=== PATIENT | female | born 1940 | race Caucasian/White ===

== ENCOUNTER 2017-06-26 18:53 | Inpatient (IN) | payer MEDICARE, OTHER ==
[~2017-06-26] VITALS: Ht 152.4 cm; Wt 63.6 kg
[2017-06-26 19:57] LABS: BASOPHILS 0.5 % (0-2); EOSINOPHILS 4.7 % (0-7); HEMATOCRIT 43.1 % (36.0-48.0); HEMOGLOBIN 14.6 g/dL (12-16); IMMATURE GRANULOCYTES 0.1 % (0-5); LYMPHOCYTES 10.9 % (15-50); MCH 29.8 pg (26.0-34.0); MCHC 33.9 g/dL (31.0-37.0); MEAN PLATELET VOLUME 10.4 fL (7.4-10.4); MONOCYTES 8.3 % (2-11); NEUTROPHILS 75.5 % (40-80); PLATELET COUNT 206 10x3/uL (130-400); RDW 13.2 % (11.5-14.5); WBC 8.2 10x3/uL (4.8-10.8)
[2017-06-26 20:11] LABS: ALBUMIN 3.6 g/dL (3.4-5.0); ALKALINE PHOSPHATASE 82 U/L (46-116); ALT (SGPT) 20 U/L (10-68); BILIRUBIN - TOTAL 0.82 mg/dL (0.2-1.3); CALC OSMOLALITY 291 mosm/kg (275-300); CALCIUM 9.5 mg/dL (8.5-10.1); CARBON DIOXIDE 34.5 mmol/L (21.0-32.0); CHLORIDE - SERUM 103 mmol/L (98-107); CREATININE - SERUM 1.1 mg/dL (0.6-1.3); GLUCOSE 128 mg/dL (74-106); POTASSIUM - SERUM 3.5 mmol/L (3.5-5.1); SODIUM 146 mmol/L (136-145); UREA NITROGEN 9 mg/dL (7-18); eGFR NON AFRICAN AMERICAN 51 mL/min (90-120)
[2017-06-26 20:24] LABS: CREATINE KINASE 55 UL (21-215)
[2017-06-26 20:41] LABS: TROPONIN-I < 0.017 ng/mL (0.000-0.060)
[2017-06-26 23:39] LABS: CKMB 1.1 U/L (0.0-3.6); CREATINE KINASE 53 UL (21-215); TROPONIN-I < 0.017 ng/mL (0.000-0.060)
[2017-06-27] VITALS: BP 140/80
[2017-06-27] MEDS ORDERED: SPIRIVA18 MCG INH (00:59)
[2017-06-27] MEDS ORDERED: PATANOL 0.1 % OP5 ML EACH EYE (01:00)
[2017-06-27] MEDS ORDERED: MUCOMYST 20200 MG/M2 INH (01:00)
[2017-06-27] MEDS ORDERED: NORVASC5 MG PO (01:01)
[2017-06-27] MEDS ORDERED: PULMICORT0.5 MG/21 INH (01:02)
[2017-06-27] MEDS ORDERED: CHOLESTYRAMIN4 G/PK1 PO (01:03)
[2017-06-27] MEDS ORDERED: COREG12.5 MG PO (01:03)
[2017-06-27 05:31] LABS: BASOPHILS 0.7 % (0-2); EOSINOPHILS 7.4 % (0-7); HEMATOCRIT 40.5 % (36.0-48.0); HEMOGLOBIN 13.7 g/dL (12-16); IMMATURE GRANULOCYTES 0.2 % (0-5); LYMPHOCYTES 19.1 % (15-50); MCH 29.5 pg (26.0-34.0); MCHC 33.8 g/dL (31.0-37.0); MCV 87.1 fL (80.0-100.0); MEAN PLATELET VOLUME 10.7 fL (7.4-10.4); MONOCYTES 10.2 % (2-11); NEUTROPHILS 62.4 % (40-80); PLATELET COUNT 209 10x3/uL (130-400); RBC 4.65 10x6/uL (4.00-5.40); RDW 13.4 % (11.5-14.5)
[2017-06-27 05:38] LABS: ANION GAP 10.6 mmol/L (8-16); CALCIUM 9.2 mg/dL (8.5-10.1); CARBON DIOXIDE 32.2 mmol/L (21.0-32.0)
[2017-06-27 05:40] LABS: CREATININE - SERUM 0.8 mg/dL (0.6-1.3)
[2017-06-27 05:41] LABS: POTASSIUM - SERUM 2.8 mmol/L (3.5-5.1)
[2017-06-27 06:09] LABS: CKMB 0.8 U/L (0.0-3.6); CREATINE KINASE 46 UL (21-215); TROPONIN-I < 0.017 ng/mL (0.000-0.060)
[2017-06-27 09:56] VITALS: BP 157/84
[2017-06-27 12:15] LABS: CKMB 0.7 U/L (0.0-3.6); CREATINE KINASE 48 UL (21-215); TROPONIN-I < 0.017 ng/mL (0.000-0.060)
[2017-06-27 12:23] VITALS: BP 151/87
[2017-06-27 16:15] LABS: CKMB 0.7 U/L (0.0-3.6); CREATINE KINASE 54 UL (21-215); TROPONIN-I < 0.017 ng/mL (0.000-0.060)
[2017-06-27 16:59] VITALS: BP 130/63
[2017-06-27 20:33] VITALS: BP 142/89
[2017-06-28 00:41] VITALS: BP 179/76
[2017-06-28 05:50] VITALS: BP 192/95
[2017-06-28 08:13] VITALS: BP 127/70
[2017-06-28 11:25] VITALS: BP 147/89
[2017-06-28 12:36] LABS: BASOPHILS 0.3 % (0-2); EOSINOPHILS 6.2 % (0-7); HEMATOCRIT 41.3 % (36.0-48.0); IMMATURE GRANULOCYTES 0.1 % (0-5); LYMPHOCYTES 21.2 % (15-50); MCHC 33.9 g/dL (31.0-37.0); MCV 88.4 fL (80.0-100.0); MEAN PLATELET VOLUME 10.2 fL (7.4-10.4); MONOCYTES 6.1 % (2-11); NEUTROPHILS 66.1 % (40-80); PLATELET COUNT 190 10x3/uL (130-400); RBC 4.67 10x6/uL (4.00-5.40); RDW 13.5 % (11.5-14.5); WBC 7.1 10x3/uL (4.8-10.8)
[2017-06-28 12:51] LABS: ALBUMIN 3.2 g/dL (3.4-5.0); ANION GAP 12.3 mmol/L (8-16); BILIRUBIN - TOTAL 1.02 mg/dL (0.2-1.3); CALCIUM 9.4 mg/dL (8.5-10.1); CARBON DIOXIDE 32.4 mmol/L (21.0-32.0); CREATININE - SERUM 0.9 mg/dL (0.6-1.3); POTASSIUM - SERUM 3.7 mmol/L (3.5-5.1); PROTEIN - SERUM 7.6 g/dL (6.4-8.2)
[2017-06-28 15:44] VITALS: BP 128/55
[2017-06-28 20:30] VITALS: BP 153/72
[2017-06-29 00:30] VITALS: BP 126/60
[2017-06-29 04:30] VITALS: BP 149/73
[2017-06-29 05:02] LABS: BASOPHILS 0.4 % (0-2); EOSINOPHILS 7.8 % (0-7); HEMATOCRIT 39.1 % (36.0-48.0); HEMOGLOBIN 12.9 g/dL (12-16); IMMATURE GRANULOCYTES 0.3 % (0-5); LYMPHOCYTES 21.3 % (15-50); MCH 29.5 pg (26.0-34.0); MCV 89.3 fL (80.0-100.0); MEAN PLATELET VOLUME 10.4 fL (7.4-10.4); MONOCYTES 9.2 % (2-11); PLATELET COUNT 193 10x3/uL (130-400); RBC 4.38 10x6/uL (4.00-5.40); RDW 13.6 % (11.5-14.5); WBC 7.3 10x3/uL (4.8-10.8)
[2017-06-29 05:26] LABS: ANION GAP 12.5 mmol/L (8-16); BILIRUBIN - TOTAL 0.93 mg/dL (0.2-1.3); CALCIUM 9.3 mg/dL (8.5-10.1); CARBON DIOXIDE 31.2 mmol/L (21.0-32.0); CREATININE - SERUM 0.8 mg/dL (0.6-1.3); PHOSPHOROUS 4.4 mg/dL (2.5-4.9); POTASSIUM - SERUM 3.7 mmol/L (3.5-5.1); PROTEIN - SERUM 6.9 g/dL (6.4-8.2)
[2017-06-29 08:29] VITALS: BP 162/73
[2017-06-29 11:31] VITALS: BP 176/90
[2017-06-29 15:47] VITALS: BP 183/82
[2017-06-29 20:30] VITALS: BP 117/54
[2017-06-30 00:30] VITALS: BP 151/74
[2017-06-30 04:30] VITALS: BP 115/70
[2017-06-30 05:06] LABS: BASOPHILS 0.2 % (0-2); EOSINOPHILS 0.4 % (0-7); HEMATOCRIT 39.5 % (36.0-48.0); HEMOGLOBIN 13.3 g/dL (12-16); IMMATURE GRANULOCYTES 0.2 % (0-5); LYMPHOCYTES 9.5 % (15-50); MCH 29.7 pg (26.0-34.0); MCHC 33.7 g/dL (31.0-37.0); MCV 88.2 fL (80.0-100.0); MEAN PLATELET VOLUME 10.4 fL (7.4-10.4); MONOCYTES 1.4 % (2-11); NEUTROPHILS 88.3 % (40-80); PLATELET COUNT 178 10x3/uL (130-400); RBC 4.48 10x6/uL (4.00-5.40); RDW 13.4 % (11.5-14.5)
[2017-06-30 05:09] LABS: WBC 5.1 10x3/uL (4.8-10.8)
[2017-06-30 05:38] LABS: ALBUMIN 3.2 g/dL (3.4-5.0); ANION GAP 12.2 mmol/L (8-16); BILIRUBIN - TOTAL 0.73 mg/dL (0.2-1.3); CALCIUM 9.2 mg/dL (8.5-10.1); CARBON DIOXIDE 31.1 mmol/L (21.0-32.0); CREATININE - SERUM 0.8 mg/dL (0.6-1.3); POTASSIUM - SERUM 4.3 mmol/L (3.5-5.1); PROTEIN - SERUM 7.5 g/dL (6.4-8.2)
[2017-06-30 08:21] VITALS: BP 155/85
[2017-06-30 12:15] VITALS: BP 155/75
[2017-06-30 12:45] VITALS: Ht 152.4 cm; Wt 63.6 kg
[2017-06-30 17:24] VITALS: BP 149/90
[2017-06-30 20:00] VITALS: BP 178/99
[2017-07-01 00:49] VITALS: BP 156/99
[2017-07-01 06:00] LABS: BASOPHILS 0 % (0-2); EOSINOPHILS 0 % (0-7); HEMATOCRIT 39.9 % (36.0-48.0); HEMOGLOBIN 13.5 g/dL (12-16); IMMATURE GRANULOCYTES 0.2 % (0-5); LYMPHOCYTES 7.3 % (15-50); MCH 29.7 pg (26.0-34.0); MCHC 33.8 g/dL (31.0-37.0); MCV 87.9 fL (80.0-100.0); MEAN PLATELET VOLUME 11.2 fL (7.4-10.4); NEUTROPHILS 87.5 % (40-80); PLATELET COUNT 203 10x3/uL (130-400); RBC 4.54 10x6/uL (4.00-5.40); RDW 13.5 % (11.5-14.5)
[2017-07-01 06:17] LABS: ALBUMIN 3.1 g/dL (3.4-5.0); BILIRUBIN - TOTAL 0.61 mg/dL (0.2-1.3); CALCIUM 9.6 mg/dL (8.5-10.1); CARBON DIOXIDE 29.4 mmol/L (21.0-32.0); CREATININE - SERUM 0.8 mg/dL (0.6-1.3); POTASSIUM - SERUM 4.4 mmol/L (3.5-5.1); PROTEIN - SERUM 7.4 g/dL (6.4-8.2)
[2017-07-01 06:25] LABS: WBC 12.6 10x3/uL (4.8-10.8)
[2017-07-01 06:46] VITALS: BP 140/81
[2017-07-01 08:51] VITALS: BP 140/81
[2017-07-01 11:20] LABS: IMMUNOGLOBULIN A 1614 mg/dL (64-422); IMMUNOGLOBULIN M 68 mg/dL (26-217)
[2017-07-01 12:29] VITALS: BP 125/80
[2017-07-01 17:28] VITALS: BP 143/72
[2017-07-01 20:00] VITALS: BP 145/76
[2017-07-02] VITALS: BP 142/59
[2017-07-02 04:00] VITALS: BP 146/68
[2017-07-02 06:07] LABS: BASOPHILS 0 % (0-2); EOSINOPHILS 0 % (0-7); HEMATOCRIT 40.5 % (36.0-48.0); HEMOGLOBIN 13.5 g/dL (12-16); IMMATURE GRANULOCYTES 0.4 % (0-5); LYMPHOCYTES 6.5 % (15-50); MCH 29.8 pg (26.0-34.0); MCHC 33.3 g/dL (31.0-37.0); MCV 89.4 fL (80.0-100.0); MEAN PLATELET VOLUME 11.9 fL (7.4-10.4); MONOCYTES 1.6 % (2-11); NEUTROPHILS 91.5 % (40-80); PLATELET COUNT 197 10x3/uL (130-400); RBC 4.53 10x6/uL (4.00-5.40); RDW 13.7 % (11.5-14.5); WBC 11.3 10x3/uL (4.8-10.8)
[2017-07-02 06:10] LABS: ALBUMIN 3.1 g/dL (3.4-5.0); ANION GAP 11.6 mmol/L (8-16); BILIRUBIN - TOTAL 0.4 mg/dL (0.2-1.3); CALCIUM 9.3 mg/dL (8.5-10.1); CARBON DIOXIDE 29.4 mmol/L (21.0-32.0); CREATININE - SERUM 0.9 mg/dL (0.6-1.3); PROTEIN - SERUM 7.4 g/dL (6.4-8.2)
[2017-07-02 08:00] VITALS: BP 127/88
[2017-07-02] MEDS ORDERED: PREDNISONE20 MG PO (11:44)
[2017-07-02] MEDS ORDERED: PROTONIX40 MG PO (11:45)
[2017-07-02] MEDS ORDERED: LEVAQUIN500 MG PO (11:45)
[2017-07-05 12:12] LABS: IMMUNOGLOBULIN E 260 IU/mL (0-100)
== END 2017-07-02 15:04 | disposition home or self-care (01) | DRG 193 ==
LOC: D.ER 18:53 → D.M2 23:04 → OBSVTIME 23:04 → D.M2 23:04
PROVIDERS: Emergency Medicine; Family Medicine; Internal Medicine Pulmonary Disease
DX: J18.9 Pneumonia, unspecified organism (principal); J96.01 Acute respiratory failure with hypoxia; J98.11 Atelectasis; E87.0 Hyperosmolality and hypernatremia; J20.9 Acute bronchitis, unspecified; I10 Essential (primary) hypertension; K21.9 Gastro-esophageal reflux disease without esophagitis; I08.3 Combined rheumatic disorders of mitral, aortic and tricuspid valves; J39.8 Other specified diseases of upper respiratory tract; K59.00 Constipation, unspecified; J30.9 Allergic rhinitis, unspecified; K57.90 Diverticulosis of intestine, part unspecified, without perforation or abscess without bleeding; E87.6 Hypokalemia; M81.0 Age-related osteoporosis without current pathological fracture; J45.909 Unspecified asthma, uncomplicated; Z87.891 Personal history of nicotine dependence

== ENCOUNTER 2017-08-09 11:43 | Emergency (ER) | payer MEDICARE, OTHER ==
[2017-06-30 12:45] VITALS: BMI 27.7
[~2017-08-09 11:43] MED LIST: CHOLESTYRAMIN4 G/PK1 PO; COREG12.5 MG PO; LEVAQUIN500 MG PO; MUCOMYST 20200 MG/M2 INH; NORVASC5 MG PO; PATANOL 0.1 % OP5 ML EACH EYE; PREDNISONE20 MG PO; PROTONIX40 MG PO; PULMICORT0.5 MG/21 INH; SPIRIVA18 MCG INH
[2017-08-09 12:45] LABS: BASOPHILS 0.5 % (0-2); HEMATOCRIT 40.1 % (36.0-48.0); IMMATURE GRANULOCYTES 0.2 % (0-5); LYMPHOCYTES 21.7 % (15-50); MCH 29.9 pg (26.0-34.0); MCHC 34.9 g/dL (31.0-37.0); MCV 85.7 fL (80.0-100.0); MONOCYTES 8.4 % (2-11); NEUTROPHILS 63.2 % (40-80); PLATELET COUNT 210 10x3/uL (130-400); RBC 4.68 10x6/uL (4.00-5.40); RDW 13.2 % (11.5-14.5); WBC 6.6 10x3/uL (4.8-10.8)
== END 2017-08-09 14:36 | disposition home or self-care (01) ==
LOC: D.ER 11:43
PROVIDERS: Nurse Practitioner Family
DX: J44.1 Chronic obstructive pulmonary disease with (acute) exacerbation (principal)

== ENCOUNTER 2018-12-21 00:58 | Inpatient (IN) | payer MEDICARE, OTHER ==
[~2018-12-21] VITALS: Ht 152.4 cm; Wt 75.1 kg
[2018-12-21] VITALS (75 sets, daily range): BP systolic 57–195; BP diastolic 24–120; Ht 152.4 cm; Wt 75.1 kg
--- NOTE | 2018-12-21 01:22 | NUR ---
ET TUBE CHANGED OUT BY DR HODGES USING DIRECT VISUALIZATION. 7.0 ET TUBE PLACED.
[2018-12-21 01:25] LABS: BASOPHILS 0.4 % (0-2); EOSINOPHILS 3.3 % (0-7); HEMATOCRIT 34.2 % (36.0-48.0); HEMOGLOBIN 11.1 g/dL (12-16); IMMATURE GRANULOCYTES 0.4 % (0-5); LYMPHOCYTES 13.7 % (15-50); MCH 29.2 pg (26.0-34.0); MCHC 32.5 g/dL (31.0-37.0); MEAN PLATELET VOLUME 10.5 fL (7.4-10.4); MONOCYTES 5.6 % (2-11); NEUTROPHILS 76.6 % (40-80); PLATELET COUNT 176 10x3/uL (130-400); RDW 14.1 % (11.5-14.5); WBC 5.7 10x3/uL (4.8-10.8)
[2018-12-21 01:37] LABS: APPEARANCE CLOUDY (CLEAR); BILIRUBIN NEGATIVE (NEGATIVE); COLOR DK YELLOW (YELLOW); GLUCOSE NEGATIVE (NEGATIVE); KETONE NEGATIVE (NEGATIVE); NITRITE POSITIVE (NEGATIVE); PROTEIN 3+ mg/dL (NEGATIVE); UROBILINOGEN NORMAL (NORMAL)
[2018-12-21 01:39] LABS: BACTERIA MANY /hpf (NEGATIVE); EPITHELIAL CELLS 0-5 /hpf (0-5); RED CELLS - URINE 0-5 /hpf (0-5); WHITE CELLS - URINE 0-5 /hpf (NEGATIVE)
[2018-12-21 02:02] LABS: ALBUMIN 2.4 g/dL (3.4-5.0); ALKALINE PHOSPHATASE 72 U/L (46-116); ALT (SGPT) 19 U/L (10-68); BILIRUBIN - TOTAL 0.64 mg/dL (0.2-1.3); CALC OSMOLALITY 287 mosm/kg (275-300); CALCIUM 8.4 mg/dL (8.5-10.1); CARBON DIOXIDE 27.4 mmol/L (21.0-32.0); CHLORIDE - SERUM 108 mmol/L (98-107); CREATININE - SERUM 0.8 mg/dL (0.6-1.3); GLUCOSE 160 mg/dL (74-106); POTASSIUM - SERUM 3.3 mmol/L (3.5-5.1); PROTEIN - SERUM 5.8 g/dL (6.4-8.2); SODIUM 144 mmol/L (136-145); UREA NITROGEN 6 mg/dL (7-18); eGFR NON AFRICAN AMERICAN 73 mL/min (90-120)
[2018-12-21 02:10] LABS: CREATINE KINASE 39 UL (21-215); MAGNESIUM - SERUM 1.7 mg/dL (1.8-2.4); PRO BNP 109 pg/mL (0-450); TROPONIN-I < 0.017 ng/mL (0.000-0.060)
--- NOTE | 2018-12-21 03:25 | NUR ---
RECEIVED PT FROM THE ED TO ROOM 2303. PT IS INTUBATED AND SEDATED AT TIME OF TRANSFER. BILATERAL WRIST RESTRAINTS IN PLACE. PT ATTACHED TO ICU MONITORS, ALL MONITORS ARE WORKING CORRECTLY AT THIS TIME. INITIAL ASSESSMENT COMPLETED, SEE FLOWSHEET FOR DETAILS. PT CURRENTLY HAS MAKI HUGGER ON DUE TO DECREASED TEMPERTURE. PT CLEANED UP AND OLD BED LINENS REMOVED. NO FURTHER NEEDS NOTED AT THIS TIME. NO SIGNS OF ACUTE DISTRESS. WILL CONTINUE TO MONITOR.
--- NOTE | 2018-12-21 05:00 | NUR ---
PT IS LAYING IN BED INTUBATED AND SEDATED. PT REPOSITIONED FOR COMFORT. ORAL CARE PERFORMED. NO FURTHER NEEDS NOTED AT THIS TIME. NO SIGNS OF ACUTE DISTRESS. WILL CONTINUE TO MONITOR.
--- NOTE | 2018-12-21 07:00 | NUR ---
REC'D PT INTUBATED, SEDATED, AND RESTRAINED. PT WITH V/S/S. LEVOPHED AT 10MCG, PROPOFOL AT 50MCG/KG/MIN, AND NS AT 100CC/HR. SEE FLOWSHEET FOR DETAILED NSG ASSESS.
--- NOTE | 2018-12-21 09:00 | NUR ---
0900 PT RESTING WELL. V/S/S. TOLERATED AM MEDS. K+ and Mag replaced per electrolyte protocol. No changes in previous assess. Will continue to monitor.
--- NOTE | 2018-12-21 10:00 | NUR ---
1000 Dr. Gaines here. Orders rec'd. Titrating drips as needed. see flowsheet. 1100 No changes in previous assess. See ns flowsheet for details.
--- NOTE | 2018-12-21 11:00 | NUR ---
patient on vent. sedated. levophed. patient turned. oral care done. new sheets provided. face washed. will continue to monitor.
--- NOTE | 2018-12-21 13:00 | NUR ---
patient awakens on command. reoriented patient to place and situation. no distress noted. educated on why restraints were put on. turned patient. suctioned patient. clear secretions. denies pain.
--- NOTE | 2018-12-21 19:00 | NUR ---
PT REPORT RECEIVED FROM DAY SHIFT NURSE. VSS. NO SIGNS OF DISTRESS NOTED. WILL CONTINUE TO MONITOR
--- NOTE | 2018-12-21 21:00 | NUR ---
PT RESTING IN BED. VSS. NO SIGNS OF DISTRESS NOTED. WILL CONTINUE TO MONITOR
--- NOTE | 2018-12-21 23:09 | NUR ---
PT REASSESSMENT COMPLETED. RESTING IN BED. VSS. WILL CONTINUE TO MONITOR
[2018-12-22] VITALS (31 sets, daily range): BP systolic 102–155; BP diastolic 49–98
--- NOTE | 2018-12-22 01:00 | NUR ---
PT RESTING IN BED. NO SIGNS OF DISTRESS NOTED. VSS. WILL CONTINUE TO MONITOR
--- NOTE | 2018-12-22 03:00 | NUR ---
PT RESTING IN BED. REASSESSMENT COMPLETED. PT TOLERATED WELL. VSS. WILL CONTINUE TO MONITOR
--- NOTE | 2018-12-22 05:00 | NUR ---
PT RESTING IN BED. ORAL CARE PERFORMED. NO COMPLAINTS NOTED AT THIS TIME. VSS. WILL CONTINUE TO MONITOR
[2018-12-22 05:19] LABS: BASOPHILS 0.1 % (0-2); EOSINOPHILS 0 % (0-7); HEMATOCRIT 37.2 % (36.0-48.0); HEMOGLOBIN 12.2 g/dL (12-16); IMMATURE GRANULOCYTES 0.2 % (0-5); LYMPHOCYTES 5.7 % (15-50); MCH 29.4 pg (26.0-34.0); MCHC 32.8 g/dL (31.0-37.0); MCV 89.6 fL (80.0-100.0); MEAN PLATELET VOLUME 11.9 fL (7.4-10.4); MONOCYTES 1.8 % (2-11); NEUTROPHILS 92.2 % (40-80); PLATELET COUNT 173 10x3/uL (130-400); RBC 4.15 10x6/uL (4.00-5.40); RDW 14.8 % (11.5-14.5)
[2018-12-22 05:39] LABS: ANION GAP 11.8 mmol/L (8-16); CALCIUM 8.2 mg/dL (8.5-10.1); CARBON DIOXIDE 26.4 mmol/L (21.0-32.0); CREATININE - SERUM 0.8 mg/dL (0.6-1.3); MAGNESIUM - SERUM 1.8 mg/dL (1.8-2.4); PHOSPHOROUS 2.2 mg/dL (2.5-4.9); POTASSIUM - SERUM 3.2 mmol/L (3.5-5.1)
--- NOTE | 2018-12-22 07:00 | NUR ---
REC'D REPORT FROM [facility]. PT REMAINS INTUBATED, SEDATED, AND RESTRAINED. PROP. AT 30MCG INFUSING. PT AWAKENS TO VOICE. SEE FLOWSHEET FOR DETAILS. V/S/S. WILL CONTINUE TO MONITOR.
--- NOTE | 2018-12-22 09:00 | NUR ---
0900 PT WITHOUT CHANGES. V/S/S. WILL CONT TO MONITOR.
--- NOTE | 2018-12-22 11:00 | NUR ---
1030 PT RESTRAINTS D/C'D. PROPOFOL OFF. TOLERATING WEANING ON VENT WELL. PT FOLLOWING COMMANDS. 1100 PT EXTUBATED AND DOING WELL. CURRENTLY ON BIPAP AND V/S/S. CL IN REACH. WILL CONTINUE TO MONITOR.
--- NOTE | 2018-12-22 11:55 | MORECARE ---
CASE MANAGEMENT DISCHARGE SUMMARY PATIENT: ADRIEN BERGERON UNIT: [id number] ADM DATE: 12/21/18 AGE: 78 : 38 SEX: F ROOM/BED: D.2303 AUTHOR: GRISEL WINN PHYSICIAN: REFERRING PHYSICIAN: BOB MOMIN MD DATE OF SERVICE: 12/22/18 Discharge Plan Patient Name: ADRIEN BERGERON Facility: [facility]:[place] : 1940 Planned Disposition: Home Anticipated Discharge Date: Discharge Date: Expected LOS: Initial Reviewer: [email or web address] Initial Review Date: 12/21/2018 Generated: 12/22/18 12:54 pm Patient Name: ADRIEN BERGERON Page [phone] at 1155 All edits/amendments must be made on the electronic document DICTATION DATE: 12/22/18 1154 DISABILITY CASE MANAGER: SOPHIE 12/22/18 1154 RPT#: [id number] DC DATE: STATUS: ADM IN [facility] [address] [place] [address] END OF REPORT
--- NOTE | 2018-12-22 12:11 | MORECARE ---
CASE MANAGEMENT DISCHARGE SUMMARY PATIENT: ARDIEN BERGERON UNIT: [id number] ADM DATE: 12/21/18 AGE: 78 : 38 SEX: F ROOM/BED: D.2303 AUTHOR: GRISEL WINN PHYSICIAN: REFERRING PHYSICIAN: BOB MOMIN MD DATE OF SERVICE: 12/22/18 Discharge Plan Patient Name: ADRIEN BERGERON Facility: [facility]:[place] : 1940 Planned Disposition: Home Anticipated Discharge Date: Discharge Date: Expected LOS: Initial Reviewer: [email or web address] Initial Review Date: 12/21/2018 Generated: 12/22/18 1:11 pm Comments DCP- Discharge Planning Updated by [email or web address]: Terri Turk on 12/22/18 11:[address] Patient Name: ADRIEN BERGERON Admission Status: ER Accout number: [id number] Admission Date: 12-21-2018 : 1940 Admission Diagnosis:ACUTE RESPIRATORY FAILURE, UNSP W HYPOXIA OR HYPERCAPNI Attending: BOB MOMIN Current LOS: 1 Anticipated DC Date: Planned Disposition: Home Primary Insurance: MEDICARE A & B Discharge Planning Comments: CM spoke with patient's brother Kumar Bower [phone]. Kumar stated that patient lives alone and he is her only family. He stated that the patient has two daughters that she hasn't had contact with in over 30 yrs. Kumar states that the patient sees multiple doctors but uncertain as to who they all are. He states that he takes her to her appointments about twice a month. Kumar stated that she does have home 02 at his house and hers but that is all that he knows at this point. CM will need to re-evaluate this discharge plan once patient is off vent and alert. CM will continue to follow and assist as needed with discharge planning / needs School Bus Technician: Terri Turk Last DP export: 12/22/18 10:55 a Patient Name: ADRIEN BERGERON Page [phone] at 1211 All edits/amendments must be made on the electronic document DICTATION DATE: 12/22/18 1211 ROTOFORMER BACKTENDER: DM 12/22/18 1211 RPT#: [id number] DC DATE: STATUS: ADM IN [facility] [address] [place] [address] END OF REPORT
--- NOTE | 2018-12-22 13:00 | NUR ---
1300 pt tolerating NC well at 2L. v/s/s CL in reach will continue to monitor.
--- NOTE | 2018-12-22 18:27 | NUR ---
1500 bedside swallowing study done. pt tolerated sips very well. pt already had loud congested cough. no changes in o2sat, lung sounds, or respiratory status.
--- NOTE | 2018-12-22 19:00 | NUR ---
PT REPORT RECEIVED FROM DAY SHIFT NURSE. PT RESTING IN BED. VSS. NO SIGNS OF DISTRESS NOTED. WILL CONTINUE TO MONITOR
--- NOTE | 2018-12-22 21:00 | NUR ---
PT RESTING IN BED. FAMILY AT BEDSIDE. NO SIGNS OF DISTRESS NOTED. WILL CONTINUE TO MONITOR
--- NOTE | 2018-12-22 23:00 | NUR ---
PT RESTING IN BED. REASSESSMENT COMPLETED. PT TOLERATED WELL. WILL CONTINUE TO MONITOR
[2018-12-23] VITALS (14 sets, daily range): BP systolic 110–170; BP diastolic 48–102
--- NOTE | 2018-12-23 01:00 | NUR ---
PT RESTING IN BED. VSS. NO COMPLAINTS AT THIS TIME. WILL CONTINUE TO MONITOR
--- NOTE | 2018-12-23 03:00 | NUR ---
PT REASSESSMENT COMPLETED. NO COMPLAINTS NOTED AT THIS TIME. VSS. WILL CONTINUE TO MONITOR
[2018-12-23 04:07] LABS: BASOPHILS 0.1 % (0-2); EOSINOPHILS 0 % (0-7); HEMATOCRIT 35.2 % (36.0-48.0); HEMOGLOBIN 11.8 g/dL (12-16); IMMATURE GRANULOCYTES 0.3 % (0-5); LYMPHOCYTES 6.2 % (15-50); MCH 29.5 pg (26.0-34.0); MCHC 33.5 g/dL (31.0-37.0); MEAN PLATELET VOLUME 11.7 fL (7.4-10.4); MONOCYTES 3.3 % (2-11); NEUTROPHILS 90.1 % (40-80); PLATELET COUNT 165 10x3/uL (130-400); RDW 14.9 % (11.5-14.5); WBC 12.2 10x3/uL (4.8-10.8)
[2018-12-23 04:17] LABS: CALC OSMOLALITY 290 mosm/kg (275-300); CALCIUM 8.2 mg/dL (8.5-10.1); CARBON DIOXIDE 27.2 mmol/L (21.0-32.0); CHLORIDE - SERUM 109 mmol/L (98-107); CREATININE - SERUM 0.7 mg/dL (0.6-1.3); GLUCOSE 157 mg/dL (74-106); POTASSIUM - SERUM 3.1 mmol/L (3.5-5.1); SODIUM 145 mmol/L (136-145); UREA NITROGEN 9 mg/dL (7-18); eGFR NON AFRICAN AMERICAN 85 mL/min (90-120)
--- NOTE | 2018-12-23 05:00 | NUR ---
PT GIVEN A CHG BATH AND LINEN CHANGE. TOLERATED WELL. NO COMPLAINTS NOTED AT THIS TIME. WILL CONTINUE TO MONITOR
--- NOTE | 2018-12-23 07:00 | NUR ---
BEDSIDE REPORT RECIEVED. ASSESSMENT COMPLETED PER FLOWSHEET, SEE FLOWSHEET FOR ADDITIONAL INFORMATION. VSS. NO NEEDS OT DISTRESS NOTED AT THIS TIME. WILL CONT TO MONITOR.
--- NOTE | 2018-12-23 09:00 | NUR ---
NUTRITION F/U CHART REVIEWED. PT REMAINS NPO, NURSING REPORTS PT SWALLOWING SIPS OF H2O WITHOUT DIFFICULTY. AWAITING MD FOR DIET ORDERS. RD FOLLOWING
--- NOTE | 2018-12-23 09:00 | NUR ---
DR. SHEPHERD AT BEDSIDE, ADVANCED DIET TO CLEAR LIQUIDS. NO NEEDS OR DISTRESS NOTED AT THIS TIME. VSS. WILL CONT TO MONITOR.
--- NOTE | 2018-12-23 11:00 | NUR ---
PT IN BED READING BOOK. NO NEEDS OR DISTRESS NOTED AT THIS TIME. VSS. WILL CONT TO MONITOR.
--- NOTE | 2018-12-23 14:19 | NUR ---
REPORT CALLED TO KAITLIN ON MED 2. PT GOING TO ROOM 2107. VSS. WILL CONT TO MONITOR.
--- NOTE | 2018-12-23 14:47 | NUR ---
PATIENT ARRIVED TO THE FLOOR WITHOUT ANY NEEDS OR COMPLAINTS AT THIS TIME. BED IS IN LOW POSITION AND CALL LIGHT IS IN REACH.
--- NOTE | 2018-12-23 16:53 | MORECARE ---
CASE MANAGEMENT DISCHARGE SUMMARY PATIENT: ADRIEN BERGERON UNIT: [id number] ADM DATE: 12/21/18 AGE: 78 : 38 SEX: F ROOM/BED: D.2106 AUTHOR: PA,DOC PHYSICIAN: REFERRING PHYSICIAN: BOB MOMIN MD DATE OF SERVICE: 12/23/18 Discharge Plan Patient Name: ADRIEN BERGERON Facility: [facility]:[place] : 1940 Planned Disposition: Home Anticipated Discharge Date: Discharge Date: Expected LOS: Initial Reviewer: [email or web address] Initial Review Date: 12/21/2018 Generated: 12/23/18 5:53 pm DCP- Discharge Planning Updated by [email or web address]: Terri Turk on 12/22/18 11:[address] Patient Name: ADRIEN BERGERON Admission Status: ER Accout number: [id number] Admission Date: 12-21-2018 : 1940 Admission Diagnosis:ACUTE RESPIRATORY FAILURE, UNSP W HYPOXIA OR HYPERCAPNI Attending: BOB MOMIN Current LOS: 1 Anticipated DC Date: Planned Disposition: Home Primary Insurance: MEDICARE A & B Discharge Planning Comments: CM spoke with patient's brother Jocelin Henderson [phone]. Jocelin stated that patient lives alone and he is her only family. He stated that the patient has two daughters that she hasn't had contact with in over 30 yrs. Jocelin states that the patient sees multiple doctors but uncertain as to who they all are. He states that he takes her to her appointments about twice a month. Jocelin stated that she does have home 02 at his house and hers but that is all that he knows at this point. CM will need to re-evaluate this discharge plan once patient is off vent and alert. CM will continue to follow and assist as needed with discharge planning / needs Spray Gun Striper: Terri Turk DCPIA - Discharge Planning Initial Assessment Updated by [email or web address]: Terri Turk on 12/23/18 4:51 pm * Is the patient Alert and Oriented? Yes * How many steps to enter\exit or inside your home? * PCP VERSER * Pharmacy [facility] * Preadmission Environment Home Alone * ADLs Independent * Other Equipment 02. PORT 02, NEBULIZER, WALKER, CANE * List name and contact numbers for known caregivers / representatives who currently or will assist patient after discharge: JOCELIN HENDERSON - [phone] * Verbal permission to speak to the caregivers and representatives has been obtained from the patient. Yes * Community resources currently utilized None * Additional services required to return to the preadmission environment? No * Can the patient safely return to the preadmission environment? Yes * Has this patient been hospitalized within the prior 30 days at any hospital? No Last DP export: 12/22/18 11:11 a Patient Name: ADRIEN BERGERON Page [id number] at 1653 All edits/amendments must be made on the electronic document DICTATION DATE: 12/23/181652 CIGAR PACKER AND PICKER: SOPHIE 12/23/181652 RPT#: [id number] DC DATE: STATUS: ADM IN [facility] [address] [place] [address] END OF REPORT
--- NOTE | 2018-12-23 17:05 | MORECARE ---
CASE MANAGEMENT DISCHARGE SUMMARY PATIENT: ADRIEN BERGERON UNIT: [id number] ADM DATE: 12/21/18 AGE: 78 : 38 SEX: F ROOM/BED: D.2106 AUTHOR: PA,DOC PHYSICIAN: REFERRING PHYSICIAN: BOB MOMIN MD DATE OF SERVICE: 12/23/18 Discharge Plan Patient Name: ADRIEN BERGERON Facility: [facility]:[place] : 1940 Planned Disposition: Inpatient Rehab Anticipated Discharge Date: Discharge Date: Expected LOS: Initial Reviewer: [email or web address] Initial Review Date: 12/21/2018 Generated: 12/23/18 6:05 pm Comments DCP- Discharge Planning Updated by [email or web address]: Terri Turk on 12/23/18 3:[address] Patient Name: ADRIEN BERGERON Admission Status: ER Accout number: [id number] Admission Date: 12-21-2018 : 1940 Admission Diagnosis:ACUTE RESPIRATORY FAILURE, UNSP W HYPOXIA OR HYPERCAPNI Attending: BOB MOMIN Current LOS: 2 Anticipated DC Date: Planned Disposition: Home Primary Insurance: MEDICARE A & B Discharge Planning Comments: CM met with patient to complete initial dc planning assessment. CM educated patient on the CM role and verbal consent given by patient to complete assessment. Patient lives at home alone where she is independent with her care. At discharge patient would like to possibly go to [facility] inpatient Rehab or [facility] for rehab and possibly local company intermodal truck driver care. Patient states she is very weak and feels this is a safe discharge plan. PAIGE signed CM discussed availability of home health, rehab services, and medical equipment. Patient's brother will transport her home upon discharge. Patient has a nebulizer and home o2 / portable 02 ( unknown provider ) Patient denied known discharge needs at this time. CM will continue to follow and will assist as needed with dc plans/needs. Automatic Spinning Lathe Setter: Terri Turk DCP- Discharge Planning Updated by [email or web address]: Terri Turk on 12/22/18 11:[address] Patient Name: ADRIEN BERGERON Admission Status: ER Accout number: [id number] Admission Date: 12-21-2018 : 1940 Admission Diagnosis:ACUTE RESPIRATORY FAILURE, UNSP W HYPOXIA OR HYPERCAPNI Attending: BOB MOMIN Current LOS: 1 Anticipated DC Date: Planned Disposition: Home Primary Insurance: MEDICARE A & B Discharge Planning Comments: CM spoke with patient's brother Jocelin Henderson [phone]. Jocelin stated that patient lives alone and he is her only family. He stated that the patient has two daughters that she hasn't had contact with in over 30 yrs. Jocelin states that the patient sees multiple doctors but uncertain as to who they all are. He states that he takes her to her appointments about twice a month. Jocelin stated that she does have home 02 at his house and hers but that is all that he knows at this point. CM will need to re-evaluate this discharge plan once patient is off vent and alert. CM will continue to follow and assist as needed with discharge planning / needs Automatic Spinning Lathe Setter: Terri Turk DCPIA - Discharge Planning Initial Assessment Updated by [email or web address]: Terri Turk on 12/23/18 4:51 pm * Is the patient Alert and Oriented? Yes * How many steps to enter\exit or inside your home? * PCP VERSER * Pharmacy [facility] * Preadmission Environment Home Alone * ADLs Independent * Other Equipment 02. PORT 02, NEBULIZER, WALKER, CANE * List name and contact numbers for known caregivers / representatives who currently or will assist patient after discharge: JOCELIN HENDERSON - BROTHER- [phone] * Verbal permission to speak to the caregivers and representatives has been obtained from the patient. Yes * Community resources currently utilized None * Additional services required to return to the preadmission environment? No * Can the patient safely return to the preadmission environment? Yes * Has this patient been hospitalized within the prior 30 days at any hospital? No Last DP export: 12/23/18 3:53 p Patient Name: ADRIEN BERGERON Page [phone] at 1705 All edits/amendments must be made on the electronic document DICTATION DATE: 12/23/181704 HOSPITALITY DIRECTOR: SOPHIE 12/23/181704 RPT#: [id number] DC DATE: STATUS: ADM IN [facility] [address] [place] [address] END OF REPORT
--- NOTE | 2018-12-23 19:15 | NUR ---
REPORT RECEIVED, WILL CONTINUE POC. PATIENT IS A/OX4, UP WITH MAX ASSIST. NO S/S OF DISTRESS OBSERVED, RR EVEN AND UNLABORED WITH DYSPNEA ON EXERTION, 3L O2 VIA NC. IV TO RT WRIST INFUSING NS@100, PATENT, DRSG C/D/I. PATIENT HAS HILLIARD DRAINING BY GRAVITY TO RT SIDE OF BED, DARK URINE NOTED. PATIENT DENIES FURTHER NEEDS AT THIS TIME. CL IN REACH, BED LOCKED AND LOWERED. WILL CTM.
[2018-12-24] VITALS: BP 151/83
[2018-12-24 04:00] VITALS: BP 166/89
[2018-12-24 05:31] LABS: CALC OSMOLALITY 290 mosm/kg (275-300); CALCIUM 7.9 mg/dL (8.5-10.1); CARBON DIOXIDE 29.2 mmol/L (21.0-32.0); CHLORIDE - SERUM 107 mmol/L (98-107); GLUCOSE 154 mg/dL (74-106); HEMATOCRIT 36.6 % (36.0-48.0); HEMOGLOBIN 12.5 g/dL (12-16); MCH 29.7 pg (26.0-34.0); MCHC 34.2 g/dL (31.0-37.0); MCV 86.9 fL (80.0-100.0); MEAN PLATELET VOLUME 12.9 fL (7.4-10.4); RBC 4.21 10x6/uL (4.00-5.40); RDW 15.7 % (11.5-14.5); SODIUM 145 mmol/L (136-145); UREA NITROGEN 10 mg/dL (7-18)
[2018-12-24 05:33] LABS: PLATELET COUNT 207 10x3/uL (130-400); WBC 9.1 10x3/uL (4.8-10.8)
[2018-12-24 05:37] LABS: CREATININE - SERUM 0.5 mg/dL (0.6-1.3); POTASSIUM - SERUM 2.9 mmol/L (3.5-5.1); eGFR NON AFRICAN AMERICAN > 90 mL/min (90-120)
--- NOTE | 2018-12-24 05:37 | NUR ---
ALLOCATION ANALYST IN ROOM BATHING PATIENT. ADMINISTERED 0600 MED, PATIENT TOLERATED WELL. WILL CTM.
[2018-12-24 07:20] LABS: LYMPHOCYTES 9 % (15-50); MONOCYTES 1 % (2-11); NEUTROPHILS 90 % (40-80)
[2018-12-24 07:21] LABS: PLATELET ESTIMATE NORMAL
[2018-12-24 09:45] VITALS: BP 164/80
[2018-12-24 13:22] VITALS: BP 154/74
--- NOTE | 2018-12-24 13:30 | NUR ---
LAB CALLED WITH K OF 2.9. WILL BE REPLACED.
[2018-12-24 17:36] VITALS: BP 140/79
--- NOTE | 2018-12-24 19:10 | NUR ---
PT CARE ASSUMED. BEDSIDE SHIFT REPORT COMPLETE. RR EVEN AND UNLABORED ON 3L NC. NO S/S OF DISTRESS NOTED AT THIS TIME. NO NEEDS EXPRESSED. CALL LIGHT IN REACH. WILL CTM.
[2018-12-24 20:00] VITALS: BP 138/72
[2018-12-25] VITALS: BP 134/71
[2018-12-25 04:00] VITALS: BP 177/82
[2018-12-25 04:44] LABS: BASOPHILS 0.1 % (0-2); EOSINOPHILS 0 % (0-7); HEMATOCRIT 37.9 % (36.0-48.0); HEMOGLOBIN 12.9 g/dL (12-16); IMMATURE GRANULOCYTES 1.1 % (0-5); LYMPHOCYTES 8.5 % (15-50); MCH 29.7 pg (26.0-34.0); MCV 87.1 fL (80.0-100.0); MEAN PLATELET VOLUME 11.6 fL (7.4-10.4); NEUTROPHILS 82.3 % (40-80); PLATELET COUNT 174 10x3/uL (130-400); RBC 4.35 10x6/uL (4.00-5.40); RDW 14.6 % (11.5-14.5); WBC 7.3 10x3/uL (4.8-10.8)
[2018-12-25 04:45] LABS: CALC OSMOLALITY 291 mosm/kg (275-300); CALCIUM 7.8 mg/dL (8.5-10.1); CARBON DIOXIDE 31.6 mmol/L (21.0-32.0); CHLORIDE - SERUM 107 mmol/L (98-107); CREATININE - SERUM 0.5 mg/dL (0.6-1.3); GLUCOSE 159 mg/dL (74-106); SODIUM 146 mmol/L (136-145); UREA NITROGEN 8 mg/dL (7-18); VANCOMYCIN - RANDOM 20.1 ug/mL (10.0-20.0); eGFR NON AFRICAN AMERICAN > 90 mL/min (90-120)
--- NOTE | 2018-12-25 05:00 | NUR ---
PT REFUSING BIPAP DURING THE NIGHT. KEPT ON FOR A TOTAL OF 4 HOURS THROUGH OUT THE NIGHT .
[2018-12-25 08:32] VITALS: BP 151/88
--- NOTE | 2018-12-25 08:44 | NUR ---
RIGHT WRIST 20G IV LEAKING. DC'D WITH CTAH INTACT. INSERTED LEFT WRIST 22G IV ON X1 ATTEMPT.
--- NOTE | 2018-12-25 08:46 | NUR ---
PT WANTS TO BE MADE DNR.
--- NOTE | 2018-12-25 09:54 | NUR ---
SPOKE WITH JIE SANTOS SHE STATES TO MAKE PT DNR, TO UP PT'S DIET, AND TO MAKE TYLENOL Q4HP INSTEAD OF Q6HP AND TO ORDER MOTRIN 400MG Q6HP FOR HEADACHE/PAIN. I VERBALIZED UNDERSTANDING.
--- NOTE | 2018-12-25 13:47 | NUR ---
Nutrition Follow-up: Pt sitting in chair with clear liquid lunch tray. States she is tired of clear liquids and thinks she could handle soft foods. Discussed with Dr. Pagan. Noted diet order changed to Regular, Soft. Wt: 166# Last BM: 12/22 per chart Labs noted: Na 146, K+ 3.0, Ca 7.8, Glu 159 Meds noted: Solumedrol, KDur, NS @ 100 -May consider low Na, dental soft diet. -Bates food preferences. -RD following.
[2018-12-25 14:52] VITALS: BP 140/77
--- NOTE | 2018-12-25 15:58 | MORECARE ---
CASE MANAGEMENT DISCHARGE SUMMARY [facility] [id number] ADM DATE: 12/21/18 AGE: 78 : 38 SEX: F ROOM/BED: D.7684 AUTHOR: PADOC PHYSICIAN: REFERRING PHYSICIAN: BOB MOMIN MD DATE OF SERVICE: 12/25/18 Discharge Plan Patient Name: ADRIEN BERGERON Facility: [facility]:[place] : 1940 Planned Disposition: Group Home Facility Anticipated Discharge Date: 12/28/18 Discharge Date: Expected LOS: 7 Initial Reviewer: [email or web address] Initial Review Date: 12/21/2018 Generated: 12/25/18 4:57 pm Comments DCP- Discharge Planning Updated by [email or web address]: Terri Turk on 12/23/18 3:[address] Patient Name: ADRIEN BERGERON Admission Status: ER Accout number: [id number] Admission Date: 12-21-2018 : 1940 Admission Diagnosis:ACUTE RESPIRATORY FAILURE, UNSP W HYPOXIA OR HYPERCAPNI Attending: BOB MOMIN Current LOS: 2 Anticipated DC Date: Planned Disposition: Home Primary Insurance: MEDICARE A & B Discharge Planning Comments: CM met with patient to complete initial dc planning assessment. CM educated patient on the CM role and verbal consent given by patient to complete assessment. Patient lives at home alone where she is independent with her care. At discharge patient would like to possibly go to [facility] inpatient Rehab or [facility] for rehab and possibly oysterman care. Patient states she is very weak and feels this is a safe discharge plan. PAIGE signed CM discussed availability of home health, rehab services, and medical equipment. Patient's brother will transport her home upon discharge. Patient has a nebulizer and home o2 / portable 02 ( unknown provider ) Patient denied known discharge needs at this time. CM will continue to follow and will assist as needed with dc plans/needs. Volleyball Assembler: Terri Turk DCP- Discharge Planning Updated by [email or web address]: Terri Turk on 12/22/18 11:[address] Patient Name: ADRIEN BERGERON Admission Status: ER Accout number: [id number] Admission Date: 12-21-2018 : 1940 Admission Diagnosis:ACUTE RESPIRATORY FAILURE, UNSP W HYPOXIA OR HYPERCAPNI Attending: BOB MOMIN Current LOS: 1 Anticipated DC Date: Planned Disposition: Home Primary Insurance: MEDICARE A & B Discharge Planning Comments: CM spoke with patient's brother Jocelin Henderson [phone]. Jocelin stated that patient lives alone and he is her only family. He stated that the patient has two daughters that she hasn't had contact with in over 30 yrs. Jocelin states that the patient sees multiple doctors but uncertain as to who they all are. He states that he takes her to her appointments about twice a month. Jocelin stated that she does have home 02 at his house and hers but that is all that he knows at this point. CM will need to re-evaluate this discharge plan once patient is off vent and alert. CM will continue to follow and assist as needed with discharge planning / needs Volleyball Assembler: Terri Turk DCPIA - Discharge Planning Initial Assessment Updated by [email or web address]: Terri Turk on 12/23/18 4:51 pm * Is the patient Alert and Oriented? Yes * How many steps to enter\exit or inside your home? * PCP VERSER * Pharmacy [facility] * Preadmission Environment Home Alone * ADLs Independent * Other Equipment 02. PORT 02, NEBULIZER, WALKER, CANE * List name and contact numbers for known caregivers / representatives who currently or will assist patient after discharge: JOCELIN HENDERSON - BROTHER- [phone] * Verbal permission to speak to the caregivers and representatives has been obtained from the patient. Yes * Community resources currently utilized None * Additional services required to return to the preadmission environment? No * Can the patient safely return to the preadmission environment? Yes * Has this patient been hospitalized within the prior 30 days at any hospital? No Coverage Notice Reviewer: [email or web address] - Terri Turk Notice Issued Date-Time: 12/23/2018 11:30 Notice Type: Patient Choice Letter Notice Delivered To: Patient Relationship to Patient: Self Ladle Builder Name: Delivery Method: HAND - Hand Delivered Diana Days: Prior Verbal Notification: Recipient Understood Notice: Yes Recipient Signature: Yes Med Rec Note Co-signed by Attending: Coverage Notice Comment: Reviewer: [id number] - Carl Kay Notice Issued Date-Time: 12/25/2018 8:45 Notice Type: IM Discharge Notice Notice Delivered To: Patient Relationship to Patient: Ladle Builder Name: Delivery Method: HAND - Hand Delivered Diana Days: Prior Verbal Notification: Recipient Understood Notice: Yes Recipient Signature: Yes Med Rec Note Co-signed by Attending: Coverage Notice Comment: Last DP export: 12/23/18 4:05 p Patient Name: ADRIEN BERGERON Page [id number] at 1558 All edits/amendments must be made on the electronic document DICTATION DATE: 12/25/181556 TOY DEPARTMENT MANAGER: SOPHIE 12/25/181556 RPT#: [id number] DC DATE: STATUS: ADM IN [facility] [address] [place] [address] END OF REPORT
--- NOTE | 2018-12-25 16:05 | MORECARE ---
CASE MANAGEMENT DISCHARGE SUMMARY PATIENT: ADRIEN BERGERONVA [facility] UNIT: [id number] ADM DATE: 12/21/18 AGE: 78 : 38 SEX: F ROOM/BED: D.6986 AUTHOR: PADOC PHYSICIAN: REFERRING PHYSICIAN: BOB MOMIN MD DATE OF SERVICE: 12/25/18 Discharge Plan Patient Name: ADRIEN BERGERON Facility: [facility]:[place] : 1940 Planned Disposition: [facility] Facility Anticipated Discharge Date: 12/28/18 Discharge Date: Expected LOS: 7 Initial Reviewer: [email or web address] Initial Review Date: 12/21/2018 Generated: 12/25/18 5:05 pm Comments DCP- Discharge Planning Updated by [id number]: Terri Turk on 12/23/18 3:[address] Patient Name: ADRIEN BERGERON Admission Status: ER Accout number: [id number] Admission Date: 12-21-2018 : 1940 Admission Diagnosis:ACUTE RESPIRATORY FAILURE, UNSP W HYPOXIA OR HYPERCAPNI Attending: BOB MOMIN Current LOS: 2 Anticipated DC Date: Planned Disposition: Home Primary Insurance: MEDICARE A & B Discharge Planning Comments: CM met with patient to complete initial dc planning assessment. CM educated patient on the CM role and verbal consent given by patient to complete assessment. Patient lives at home alone where she is independent with her care. At discharge patient would like to possibly go to [facility] inpatient Rehab or [facility] for rehab and possibly pottery striper care. Patient states she is very weak and feels this is a safe discharge plan. PAIGE signed CM discussed availability of home health, rehab services, and medical equipment. Patient's brother will transport her home upon discharge. Patient has a nebulizer and home o2 / portable 02 ( unknown provider ) Patient denied known discharge needs at this time. CM will continue to follow and will assist as needed with dc plans/needs. Pumper Helper: Terri Turk DCP- Discharge Planning Updated by [id number]: Terri Turk on 12/22/18 11:[address] Patient Name: ADRIEN BERGERON Admission Status: ER Accout number: [id number] Admission Date: 12-21-2018 : 1940 Admission Diagnosis:ACUTE RESPIRATORY FAILURE, UNSP W HYPOXIA OR HYPERCAPNI Attending: BOB MOMIN Current LOS: 1 Anticipated DC Date: Planned Disposition: Home Primary Insurance: MEDICARE A & B Discharge Planning Comments: CM spoke with patient's brother Jocelin Henderson [phone]. Jocelin stated that patient lives alone and he is her only family. He stated that the patient has two daughters that she hasn't had contact with in over 30 yrs. Jocelin states that the patient sees multiple doctors but uncertain as to who they all are. He states that he takes her to her appointments about twice a month. Jocelin stated that she does have home 02 at his house and hers but that is all that he knows at this point. CM will need to re-evaluate this discharge plan once patient is off vent and alert. CM will continue to follow and assist as needed with discharge planning / needs Pumper Helper: Terri Turk DCPIA - Discharge Planning Initial Assessment Updated by [id number]: Terri Turk on 12/23/18 4:51 pm * Is the patient Alert and Oriented? Yes * How many steps to enter\exit or inside your home? * PCP VERSER * Pharmacy [facility] * Preadmission Environment Home Alone * ADLs Independent * Other Equipment 02. PORT 02, NEBULIZER, WALKER, CANE * List name and contact numbers for known caregivers / representatives who currently or will assist patient after discharge: OJCELIN HENDERSON - BROTHER- [phone] * Verbal permission to speak to the caregivers and representatives has been obtained from the patient. Yes * Community resources currently utilized None * Additional services required to return to the preadmission environment? No * Can the patient safely return to the preadmission environment? Yes * Has this patient been hospitalized within the prior 30 days at any hospital? No External Providers External Provider: [facility] Next Contact Date: 12/25/2018 Service Request Date: Service Type: Resolution: Reviewer: Comments: Coverage Notice Reviewer: [id number] - Terri Turk Notice Issued Date-Time: 12/23/2018 11:30 Notice Type: Patient Choice Letter Notice Delivered To: Patient Relationship to Patient: Self Forest Patrolman Name: Delivery Method: HAND - Hand Delivered Diana Days: Prior Verbal Notification: Recipient Understood Notice: Yes Recipient Signature: Yes Med Rec Note Co-signed by Attending: Coverage Notice Comment: Reviewer: [id number] - Carl Kay Notice Issued Date-Time: 12/25/2018 8:45 Notice Type: IM Discharge Notice Notice Delivered To: Patient Relationship to Patient: Forest Patrolman Name: Delivery Method: HAND - Hand Delivered Diana Days: Prior Verbal Notification: Recipient Understood Notice: Yes Recipient Signature: Yes Med Rec Note Co-signed by Attending: Coverage Notice Comment: Last DP export: 12/25/18 2:58 p Patient Name: ADRIEN BERGERON Page 16416 at 1605 All edits/amendments must be made on the electronic document DICTATION DATE: 12/25/181604 BUS OR TRUCK GARAGE MECHANIC: SOPHIE 12/25/181604 RPT#: [id number] DC DATE: STATUS: ADM IN [facility] [address] [place] [address] END OF REPORT
--- NOTE | 2018-12-25 16:18 | MORECARE ---
CASE MANAGEMENT DISCHARGE SUMMARY PATIENT: ADRIEN BERGERON UNIT: [id number] ADM DATE: 12/21/18 AGE: 78 : 38 SEX: F ROOM/BED: D.3851 AUTHOR: PA,DOC PHYSICIAN: REFERRING PHYSICIAN: BOB MOMIN MD DATE OF SERVICE: 12/25/18 Discharge Plan Patient Name: ADRIEN BERGERON Facility: [facility]:[place] : 1940 Planned Disposition: Senior Living Facility Anticipated Discharge Date: 12/28/18 Discharge Date: Expected LOS: 7 Initial Reviewer: [email or web address] Initial Review Date: 12/21/2018 Generated: 12/25/18 5:18 pm Comments DCP- Discharge Planning Updated by [id number]: Carl Kay on 12/25/18 3:[address] Patient Name: ADRIEN BERGERON Encounter No: [id number] : 1940 Primary Insurance: MEDICARE A & B Anticipated DC Date: 12-28-2018 Planned Disposition: Senior Living Facility External Planned Provider: [facility], MEDICARE REHAB BED DCP follow-up note: CM SPOKE TO PT IN ROOM REGARDING INPATIENT REHAB PRESCREENING ORDER. CM DISCUSSED AVAILABILITY OF REHAB SERVICES, LOCATIONS AND PROVIDERS. PT DOES NOT WANT INPATIENT REHAB AND WANTS REFERRED TO [facility] FOR REHAB SERVICES. PT HAS BEEN THERE BEFORE AND KNOWS SHE WILL RECEIVE GOOD SERVICES THERE. IMPORTANT MESSAGE FROM MEDICARE PROVIDED AND EXPLAINED. CARE TEAM MEMBERS ADVISED IN LATER MULTI DISCIPLINARY TEAM MEETING OF PT'S CHOICE FOR ALF REHAB. CM FAXED REHAB REFERRAL TO HANY AT [facility], . CM CALLED [facility] AT [phone], LEFT MESSAGE FOR HANY WHO HAS LEFT FOR THE DAY AT 1600 HOURS AND WILL BE BACK FRIDAY TO REVIEW THE REFERRAL FOR REHAB SERVICES. CM WAITING ADMISSION DETERMINATION FOR REHAB FROM [facility]. MARIPOSA Otto DCP- Discharge Planning Updated by [id number]: Terri Turk on 12/23/18 3:[address] Patient Name: ADRIEN G ELYSSA Admission Status: ER Accout number: [id number] Admission Date: 12-21-2018 : 1940 Admission Diagnosis:ACUTE RESPIRATORY FAILURE, UNSP W HYPOXIA OR HYPERCAPNI Attending: BOB MOMIN Current LOS: 2 Anticipated DC Date: Planned Disposition: Home Primary Insurance: MEDICARE A & B Discharge Planning Comments: CM met with patient to complete initial dc planning assessment. CM educated patient on the CM role and verbal consent given by patient to complete assessment. Patient lives at home alone where she is independent with her care. At discharge patient would like to possibly go to [facility] inpatient Rehab or [facility] for rehab and possibly terminal manager care. Patient states she is very weak and feels this is a safe discharge plan. PAIGE signed CM discussed availability of home health, rehab services, and medical equipment. Patient's brother will transport her home upon discharge. Patient has a nebulizer and home o2 / portable 02 ( unknown provider ) Patient denied known discharge needs at this time. CM will continue to follow and will assist as needed with dc plans/needs. Nuclear Plant Equipment Operator: Terri Turk DCP- Discharge Planning Updated by [id number]: Terri Turk on 12/22/18 11:[address] Patient Name: ADRIEN BERGERON Admission Status: ER Accout number: [id number] Admission Date: 12-21-2018 : 1940 Admission Diagnosis:ACUTE RESPIRATORY FAILURE, UNSP W HYPOXIA OR HYPERCAPNI Attending: BOB MOMIN Current LOS: 1 Anticipated DC Date: Planned Disposition: Home Primary Insurance: MEDICARE A & B Discharge Planning Comments: CM spoke with patient's brother Jocelin Henderson [phone]. Jocelin stated that patient lives alone and he is her only family. He stated that the patient has two daughters that she hasn't had contact with in over 30 yrs. Jocelin states that the patient sees multiple doctors but uncertain as to who they all are. He states that he takes her to her appointments about twice a month. Jocelin stated that she does have home 02 at his house and hers but that is all that he knows at this point. CM will need to re-evaluate this discharge plan once patient is off vent and alert. CM will continue to follow and assist as needed with discharge planning / needs Nuclear Plant Equipment Operator: Terri Turk DCPIA - Discharge Planning Initial Assessment Updated by [email or web address]: Terri Turk on 12/23/18 4:51 pm * Is the patient Alert and Oriented? Yes * How many steps to enter\exit or inside your home? * PCP VERSER * Pharmacy [facility] * Preadmission Environment Home Alone * ADLs Independent * Other Equipment 02. PORT 02, NEBULIZER, WALKER, CANE * List name and contact numbers for known caregivers / representatives who currently or will assist patient after discharge: JOCELIN HENDERSON [phone] * Verbal permission to speak to the caregivers and representatives has been obtained from the patient. Yes * Community resources currently utilized None * Additional services required to return to the preadmission environment? No * Can the patient safely return to the preadmission environment? Yes * Has this patient been hospitalized within the prior 30 days at any hospital? No Coverage Notice Reviewer: [id number] - Terri Turk Notice Issued Date-Time: 12/23/2018 11:30 Notice Type: Patient Choice Letter Notice Delivered To: Patient Relationship to Patient: Self Branch Administrator Name: Delivery Method: HAND - Hand Delivered Diana Days: Prior Verbal Notification: Recipient Understood Notice: Yes Recipient Signature: Yes Med Rec Note Co-signed by Attending: Coverage Notice Comment: Reviewer: [id number] - Carl Kay Notice Issued Date-Time: 12/25/2018 8:45 Notice Type: IM Discharge Notice Notice Delivered To: Patient Relationship to Patient: Branch Administrator Name: Delivery Method: HAND - Hand Delivered Diana Days: Prior Verbal Notification: Recipient Understood Notice: Yes Recipient Signature: Yes Med Rec Note Co-signed by Attending: Coverage Notice Comment: Last DP export: 12/25/18 3:05 p Patient Name: ADRIEN BERGERON Page 57044 at 1618 All edits/amendments must be made on the electronic document DICTATION DATE: 12/25/181617 DATA WAREHOUSING ENGINEER: SOPHIE 12/25/181617 RPT#: [id number] DC DATE: STATUS: ADM IN [facility] [address] [place] [address] END OF REPORT
--- NOTE | 2018-12-25 17:09 | NUR ---
I have reviewed this patient and I concur with the Shift Assessment completed by the Licensed Practical Nurse today this shift.
--- NOTE | 2018-12-25 19:14 | NUR ---
REPORT RECIEVED AND ROUNDING COMPLETE. PATIENT IN BED IN HIGH FOWL[place], PATIENT STATES SHE IS ASSINIBOINE AND [place]. EMILY HAS A HILLIARD AND REFUSES TO HAVE IT REMOVED, PATIENT STATES SHE WILL TALK WITH DOCTOR IN THE MORNING. PATIENT'S RIGHT ARM IS SWOLLEN AND WIPPING FROM INFILTRATED PIV. PATIENT HAS A PATENT LEFT WRIST PIV THAT IS SHOWING NO S/SX OF INFILTRATION OR INFECTION AT THIS TIME. PATIENT IS RECIEVEING O2 VIA NASAL CANNULA AT 3L. PATIENT IS WEARING HER SCD'S. PATIENT STATES SHE IS DOING WELL AND HAS NO NEEDS AT THIS TIME. CALL LIGHT WITH IN REACH AND BED IN LOWEST POSITION. PATIENT SHOWING NO S/SX OF DISTRESS AT THIS TIME.
[2018-12-25 20:00] VITALS: BP 157/94
[2018-12-26] VITALS: BP 157/85
--- NOTE | 2018-12-26 03:36 | NUR ---
PATIENT IS FULL OF COMPLAINTS, SHE DIDNT GET HER COKE, SHE DIDNT GET HER TYLENOL, SHE STATES THAT SHE HAS USED HER CALL LIGHT SEVERAL TIME AND THE AID HAS CAME IN HER ROOM. AID STATES SHE NEVER ASKED FOR THOSE THINGS. PATIENT STATES NURSE(I) HAS NOT BEEN COMING IN HER ROOM. I EXPLAINED THAT I HAVE CAME IN HER ROOM MULTIPLE TIMES, TO DO MY ASSESSMENT AND TO BRING MEDICATIONS. PATIENT STATES NURSES SHOULD COME CHECK ON THEIR PATIENT'S EVERY 15 MIN. AND WE HAVE FAILED TO DO THIS SINCE SHE HAS BEEN IN THIS HOSPITAL.
[2018-12-26 05:17] LABS: HEMATOCRIT 39.3 % (36.0-48.0); HEMOGLOBIN 13.3 g/dL (12-16); MCH 29.8 pg (26.0-34.0); MCHC 33.8 g/dL (31.0-37.0); MCV 88.1 fL (80.0-100.0); RBC 4.46 10x6/uL (4.00-5.40); RDW 14.6 % (11.5-14.5)
[2018-12-26 05:19] LABS: PLATELET COUNT 134 10x3/uL (130-400)
[2018-12-26 05:20] LABS: CALC OSMOLALITY 288 mosm/kg (275-300); CALCIUM 7.9 mg/dL (8.5-10.1); CARBON DIOXIDE 29.6 mmol/L (21.0-32.0); CHLORIDE - SERUM 106 mmol/L (98-107); CREATININE - SERUM 0.6 mg/dL (0.6-1.3); GLUCOSE 170 mg/dL (74-106); POTASSIUM - SERUM 3.7 mmol/L (3.5-5.1); SODIUM 144 mmol/L (136-145); UREA NITROGEN 8 mg/dL (7-18); eGFR NON AFRICAN AMERICAN > 90 mL/min (90-120)
[2018-12-26 05:28] LABS: LYMPHOCYTES 11 % (15-50); MONOCYTES 6 % (2-11); NEUTROPHILS 79 % (40-80); PLATELET ESTIMATE DECREASED; PLATELET MORPHOLOGY PLT CLUMPS PRESENT
--- NOTE | 2018-12-26 07:00 | NUR ---
RECEVIED REPORT. ASSUMED CARE OF PATIENT. RESTING WITH EYES OPEN, RESP EVEN AND UNLABORED. NO DISTRESS. CALL LIGHT WITHIN REACH.
--- NOTE | 2018-12-26 09:59 | NUR ---
SITTING UP IN BED, ATTENTION TOWARD TELEVISION. NO DISTRESS. CALL LIGHT WITHIN REACH. IV INFUSING ORDERED.
[2018-12-26 10:35] VITALS: BP 163/80
[2018-12-26 12:50] VITALS: BP 131/71
--- NOTE | 2018-12-26 19:00 | NUR ---
RESTING IN BED. NO DISTRESS. IV FLUIDS INFUSING ORDERED. CALL LIGHT WITHIN REACH.
[2018-12-26 20:00] VITALS: BP 150/74
--- NOTE | 2018-12-26 20:00 | NUR ---
PT SITTING UP IN BED ALERT AND ORIENTED X4. RR EVEN AND UNLABORED VITALS STABLE AT THIS TIME. PT COMPLAINS OF SORE THROAT. ICE CHIPS PROVIDED. VITALS STABLE NO S/S OF DISTRESS. BED LOW CALL LIGHT WITHIN REACH BED ALARM IN PLACE. WILL CONTINUE TO MONITOR.
[2018-12-27 00:30] VITALS: BP 145/78
[2018-12-27 04:00] VITALS: BP 137/68
--- NOTE | 2018-12-27 04:16 | NUR ---
PT SITTING UP IN BED ALERT AND ORIENTED. PT COMPLAINS OF SORE THROAT AND CONGESTION IN CHEST. PT ASSISTED TO BATHEROOM BY AID. INSTRUCTED TO USE CALL LIGHT WHEN FINISHED. WILL CONTINUE TO MONITOR.
--- NOTE | 2018-12-27 04:28 | NUR ---
PT HAD SMALL FORMED BOWEL MOVEMENT. BACK IN BED. NO S/S OF DISTRESS AT THIS TIME. BED LOW CALL LIGHT WITHIN REACH. WILL CONTINUE TO MONITOR.
[2018-12-27 04:45] LABS: BASOPHILS 0.2 % (0-2); EOSINOPHILS 0 % (0-7); HEMATOCRIT 39.5 % (36.0-48.0); HEMOGLOBIN 13.3 g/dL (12-16); IMMATURE GRANULOCYTES 2.1 % (0-5); LYMPHOCYTES 7.3 % (15-50); MCH 29.6 pg (26.0-34.0); MCHC 33.7 g/dL (31.0-37.0); MCV 87.8 fL (80.0-100.0); MEAN PLATELET VOLUME 11.3 fL (7.4-10.4); MONOCYTES 9.1 % (2-11); NEUTROPHILS 81.3 % (40-80); RDW 14.4 % (11.5-14.5)
[2018-12-27 04:46] LABS: PLATELET COUNT 204 10x3/uL (130-400); WBC 9.2 10x3/uL (4.8-10.8)
[2018-12-27 04:53] LABS: CALC OSMOLALITY 290 mosm/kg (275-300); CALCIUM 7.8 mg/dL (8.5-10.1); CHLORIDE - SERUM 106 mmol/L (98-107); CREATININE - SERUM 0.7 mg/dL (0.6-1.3); GLUCOSE 188 mg/dL (74-106); SODIUM 144 mmol/L (136-145); UREA NITROGEN 10 mg/dL (7-18); eGFR NON AFRICAN AMERICAN 85 mL/min (90-120)
--- NOTE | 2018-12-27 04:54 | NUR ---
I have reviewed this patient and I concur with the Shift Assessment completed by the Licensed Practical Nurse today this shift.
[2018-12-27 04:58] LABS: POTASSIUM - SERUM 3.1 mmol/L (3.5-5.1)
--- NOTE | 2018-12-27 05:18 | NUR ---
PT 3.1 POT TREATED AND LAB RE-DRAW PUT IN FOR 929. WILL CONTINUE TO MONITOR.
--- NOTE | 2018-12-27 05:43 | NUR ---
PT HAS BEEN UP ALL NIGHT AND COMPLAINS OF NOT BEING ABLE TO SLEEP. PT WAMTS TO ASK DR FOR SOMETHING TO HELP. WILL PASS IN REPORT.
[2018-12-27 07:51] VITALS: BP 153/70
[2018-12-27 12:11] VITALS: BP 160/83
[2018-12-27 15:39] VITALS: BP 141/66
--- NOTE | 2018-12-27 19:25 | NUR ---
RECIEVED BEDSIDE REPORT FROM MOUNIKA MCCRAY. PT SITTING UP IN BED ALERT AND ORIENTED. RE-ADJUSTD PT IN BED. PT DENIES ANY PAIN OR FURTHER NEEDS AT THIS TIME. RR EVEN AND UNLABORED VITALS STABLE. NO S/S OF DISTRESS. BED LOW CALL LIGHT WITHIN REACH. WILL CONTINUE TO MONITOR.
[2018-12-27 20:00] VITALS: BP 140/54
[2018-12-28] VITALS: BP 132/72
--- NOTE | 2018-12-28 00:11 | NUR ---
PT COMPLAING OF PAIN IN BACK AFTER BREATHING TREATMENTS. PRN MOTRIN GIVEN.
--- NOTE | 2018-12-28 03:25 | NUR ---
PT RESTING COMFORTABLY WITH EYES CLOSED. RR EVEN AND UNLABORED. NO S/S OF DISTRESS AT THIS TIME. BED LOW CALL LIGHT WITHIN REACH WILL CONTINUE TO MONITOR.
[2018-12-28 04:00] VITALS: BP 149/75
[2018-12-28 04:55] LABS: ALBUMIN 2.2 g/dL (3.4-5.0); ALKALINE PHOSPHATASE 61 U/L (46-116); ALT (SGPT) 46 U/L (10-68); BASOPHILS 0.1 % (0-2); BILIRUBIN - TOTAL 0.53 mg/dL (0.2-1.3); CALCIUM 7.6 mg/dL (8.5-10.1); CARBON DIOXIDE 32.5 mmol/L (21.0-32.0); CHLORIDE - SERUM 107 mmol/L (98-107); EOSINOPHILS 0.1 % (0-7); HEMATOCRIT 36.5 % (36.0-48.0); HEMOGLOBIN 12.1 g/dL (12-16); IMMATURE GRANULOCYTES 2.8 % (0-5); LYMPHOCYTES 15.6 % (15-50); MCH 29.4 pg (26.0-34.0); MCHC 33.2 g/dL (31.0-37.0); MCV 88.8 fL (80.0-100.0); MONOCYTES 10.8 % (2-11); NEUTROPHILS 70.6 % (40-80); PLATELET COUNT 186 10x3/uL (130-400); POTASSIUM - SERUM 3.3 mmol/L (3.5-5.1); PROTEIN - SERUM 5.3 g/dL (6.4-8.2); RBC 4.11 10x6/uL (4.00-5.40); RDW 14.9 % (11.5-14.5); SODIUM 144 mmol/L (136-145); UREA NITROGEN 8 mg/dL (7-18); WBC 8.8 10x3/uL (4.8-10.8)
[2018-12-28 05:00] LABS: CALC OSMOLALITY 285 mosm/kg (275-300); CREATININE - SERUM 0.5 mg/dL (0.6-1.3); GLUCOSE 112 mg/dL (74-106); eGFR NON AFRICAN AMERICAN > 90 mL/min (90-120)
--- NOTE | 2018-12-28 05:30 | NUR ---
1450ML OF CLEAR YELLOW OUTPUT FROM HILLIARD. K+ REPLACED WITH 40MEQ REDRAW SCHEDULED AT 929. WILL CONTINUE TO MONITOR.
[2018-12-28 09:28] VITALS: BP 153/66
[2018-12-28 11:06] VITALS: BP 152/81
--- NOTE | 2018-12-28 12:28 | NUR ---
I have reviewed this patient and I concur with the Shift Assessment completed by the Licensed Practical Nurse today this shift.
[2018-12-28 15:05] VITALS: BP 162/74
--- NOTE | 2018-12-28 16:35 | NUR ---
PT L WRIST PIV INFILTRATED. REINSERTED PIV TO L FA X1 ATTEMPT. PT TOLERATED WELL.
--- NOTE | 2018-12-28 17:08 | MORECARE ---
CASE MANAGEMENT DISCHARGE SUMMARY PATIENT: ADRIEN BERGERON UNIT: [id number] ADM DATE: 12/21/18 AGE: 78 : 38 SEX: F ROOM/BED: D.7690 AUTHOR: PA,DOC PHYSICIAN: REFERRING PHYSICIAN: BOB MOMIN MD DATE OF SERVICE: 12/28/18 Discharge Plan Patient Name: ADRIEN BERGERON Facility: [facility] : 1940 Planned Disposition: [facility] Facility Anticipated Discharge Date: 12/28/18 Discharge Date: Expected LOS: 7 Initial Reviewer: [email or web address] Initial Review Date: 12/21/2018 Generated: 12/28/18 6:08 pm Comments DCP- Discharge Planning Updated by [id number]: Carl Kay on 12/28/18 4:[address] Patient Name: ADRIEN BERGERON Encounter No: [id number] : 1940 Primary Insurance: MEDICARE A & B Anticipated DC Date: 12-28-2018 Planned Disposition: [facility] Facility External Planned Provider: [facility], MEDICARE REHAB BED DCP follow-up note: CM RECEIVED CALL FROM HANY AT [facility], , THEY WILL ACCEPT AT DISCHARGE [facility] DOES NOT ACCEPT ADMITS ON WEEKENDS OR AFTER 2PM ON WEEKDAYS. PT NOTIFIED AND IN AGREEMENT WITH DISCHARGE PLAN. FOR DISCHARGE TO REHAB, FAX DISCHARGE INFORMATION TO [facility] AT [phone]; NURSE REPORT TO BE CALLED TO [facility] AT [phone]. [facility] TO ARRANGE VAN TRANSPORTATION. MARIPOSA Otto DCP- Discharge Planning Updated by [id number]: Carl Kay on 12/25/18 3:[address] Patient Name: ADRIEN BERGERON Encounter No: [id number] : 1940 Primary Insurance: MEDICARE A & B Anticipated DC Date: 12-28-2018 Planned Disposition: [facility] Facility External Planned Provider: [facility], MEDICARE REHAB BED DCP follow-up note: CM SPOKE TO PT IN ROOM REGARDING INPATIENT REHAB PRESCREENING ORDER. CM DISCUSSED AVAILABILITY OF REHAB SERVICES, LOCATIONS AND PROVIDERS. PT DOES NOT WANT INPATIENT REHAB AND WANTS REFERRED TO [facility] FOR REHAB SERVICES. PT HAS BEEN THERE BEFORE AND KNOWS SHE WILL RECEIVE GOOD SERVICES THERE. IMPORTANT MESSAGE FROM MEDICARE PROVIDED AND EXPLAINED. CARE TEAM MEMBERS ADVISED IN LATER MULTI DISCIPLINARY TEAM MEETING OF PT'S CHOICE FOR DETENTION REHAB. CM FAXED REHAB REFERRAL TO HANY AT [facility], . CM CALLED [facility] AT [phone], LEFT MESSAGE FOR HANY WHO HAS LEFT FOR THE DAY AT 1600 HOURS AND WILL BE BACK FRIDAY TO REVIEW THE REFERRAL FOR REHAB SERVICES. CM WAITING ADMISSION DETERMINATION FOR REHAB FROM [facility]. Carl Kay, CASE MANAGEMENT DCP- Discharge Planning Updated by [id number]: Terri Turk on 12/23/18 3:[address] Patient Name: ADRIEN BERGERON Admission Status: ER Accout number: [id number] Admission Date: 12-21-2018 : 1940 Admission Diagnosis:ACUTE RESPIRATORY FAILURE, UNSP W HYPOXIA OR HYPERCAPNI Attending: BOB MOMIN Current LOS: 2 Anticipated DC Date: Planned Disposition: Home Primary Insurance: MEDICARE A & B Discharge Planning Comments: CM met with patient to complete initial dc planning assessment. CM educated patient on the CM role and verbal consent given by patient to complete assessment. Patient lives at home alone where she is independent with her care. At discharge patient would like to possibly go to [facility] inpatient Rehab or [facility] for rehab and possibly group home care. Patient states she is very weak and feels this is a safe discharge plan. PAIGE signed CM discussed availability of home health, rehab services, and medical equipment. Patient's brother will transport her home upon discharge. Patient has a nebulizer and home o2 / portable 02 ( unknown provider ) Patient denied known discharge needs at this time. CM will continue to follow and will assist as needed with dc plans/needs. [employer] Portal Consultant: Terri Turk DCP- Discharge Planning Updated by [id number]: Terri Turk on 12/22/18 11:[address] Patient Name: ADRIEN G ELYSSA Admission Status: ER Accout number: [id number] Admission Date: 12-21-2018 : 1940 Admission Diagnosis:ACUTE RESPIRATORY FAILURE, UNSP W HYPOXIA OR HYPERCAPNI Attending: BOB MOMIN Current LOS: 1 Anticipated DC Date: Planned Disposition: Home Primary Insurance: MEDICARE A & B Discharge Planning Comments: CM spoke with patient's brother Jocelin Henderson [phone]. Jocelin stated that patient lives alone and he is her only family. He stated that the patient has two daughters that she hasn't had contact with in over 30 yrs. Jocelin states that the patient sees multiple doctors but uncertain as to who they all are. He states that he takes her to her appointments about twice a month. Jocelin stated that she does have home 02 at his house and hers but that is all that he knows at this point. CM will need to re-evaluate this discharge plan once patient is off vent and alert. CM will continue to follow and assist as needed with discharge planning / needs [employer] Portal Consultant: Terri Turk DCPIA - Discharge Planning Initial Assessment Updated by [id number]: Terri Turk on 12/23/18 4:51 pm * Is the patient Alert and Oriented? Yes * How many steps to enter\exit or inside your home? * PCP VERSER * Pharmacy [facility] * Preadmission Environment Home Alone * ADLs Independent * Other Equipment 02. PORT 02, NEBULIZER, WALKER, CANE * List name and contact numbers for known caregivers / representatives who currently or will assist patient after discharge: JOCELIN HENDERSON - BROTHER- [phone] * Verbal permission to speak to the caregivers and representatives has been obtained from the patient. Yes * Community resources currently utilized None * Additional services required to return to the preadmission environment? No * Can the patient safely return to the preadmission environment? Yes * Has this patient been hospitalized within the prior 30 days at any hospital? No Coverage Notice Reviewer: [id number] - Terri Turk Notice Issued Date-Time: 12/23/2018 11:30 Notice Type: Patient Choice Letter Notice Delivered To: Patient Relationship to Patient: Self Saw Grinder Name: Delivery Method: HAND - Hand Delivered Diana Days: Prior Verbal Notification: Recipient Understood Notice: Yes Recipient Signature: Yes Med Rec Note Co-signed by Attending: Coverage Notice Comment: Reviewer: [id number] - Carl Kay Notice Issued Date-Time: 12/25/2018 8:45 Notice Type: IM Discharge Notice Notice Delivered To: Patient Relationship to Patient: Saw Grinder Name: Delivery Method: HAND - Hand Delivered Diana Days: Prior Verbal Notification: Recipient Understood Notice: Yes Recipient Signature: Yes Med Rec Note Co-signed by Attending: Coverage Notice Comment: Last DP export: 12/25/18 3:18 p Patient Name: ADRIEN BERGERON Page 94200 at 1708 All edits/amendments must be made on the electronic document DICTATION DATE: 12/28/181707 TERRITORY MANAGER GENERAL SALES: SOPHIE 12/28/181707 RPT#: [id number] DC DATE: STATUS: ADM IN [facility] [address] [place] [address] END OF REPORT
[2018-12-28 20:00] VITALS: BP 130/74
[2018-12-29 00:30] VITALS: BP 116/68
[2018-12-29 04:30] VITALS: BP 159/80
[2018-12-29 06:23] LABS: HEMATOCRIT 38.2 % (36.0-48.0); HEMOGLOBIN 12.4 g/dL (12-16); IMMATURE GRANULOCYTES 4.7 % (0-5); MCH 29.3 pg (26.0-34.0); MCHC 32.5 g/dL (31.0-37.0); MCV 90.3 fL (80.0-100.0); MEAN PLATELET VOLUME 10.7 fL (7.4-10.4); PLATELET COUNT 190 10x3/uL (130-400); RBC 4.23 10x6/uL (4.00-5.40); RDW 15.1 % (11.5-14.5); WBC 8.7 10x3/uL (4.8-10.8)
--- NOTE | 2018-12-29 07:00 | NUR ---
RECEIVED REPORT. ASSUMED CARE OF EMILY. RESTING IN BED WITH NEBULIZER TREATMENT VIA PPI AT THIS TIME. NO DISTRESS. CALL LIGHT WITHIN REACH. IV FLUIDS INFUSING ORDERED.
[2018-12-29 07:03] LABS: ALBUMIN 2.3 g/dL (3.4-5.0); ALKALINE PHOSPHATASE 65 U/L (46-116); ALT (SGPT) 43 U/L (10-68); CALC OSMOLALITY 284 mosm/kg (275-300); CALCIUM 7.7 mg/dL (8.5-10.1); CARBON DIOXIDE 35.2 mmol/L (21.0-32.0); CHLORIDE - SERUM 105 mmol/L (98-107); CREATININE - SERUM 0.5 mg/dL (0.6-1.3); GLUCOSE 80 mg/dL (74-106); POTASSIUM - SERUM 3.5 mmol/L (3.5-5.1); PROTEIN - SERUM 5.3 g/dL (6.4-8.2); SODIUM 144 mmol/L (136-145); UREA NITROGEN 9 mg/dL (7-18); eGFR NON AFRICAN AMERICAN > 90 mL/min (90-120)
[2018-12-29 07:59] LABS: EOSINOPHILS 3 % (0-7); LYMPHOCYTES 19 % (15-50); MONOCYTES 8 % (2-11); NEUTROPHILS 63 % (40-80)
--- NOTE | 2018-12-29 08:08 | NUR ---
PATIENT DOES NOT MEET CRITERIA FOR HILLIARD CATH. ORDER PLACED TO DISCONTINUE HILLIARD CATHETER. THIS STERILIZATION TECH ATTEMPTED TO D/C HILLIARD ON 12/26, BUT PATIENT REFUSED. WILL ATTEMPT THIS AM AND PROVIDE EDUCATION TO PATIENT REGARDING RISK OF KEEPING HILLIARD CATHETER.
--- NOTE | 2018-12-29 08:29 | NUR ---
FOELY CATHETER EMPTYED, 1300 CC CLEAR YELLOW URINE. HILLIARD CATHETER DISCONTINUES AT THIS TIME. PATIENT EDUCATION PROVIDED AND PATIENT VERBALIZED HER UNDERSTANDING. PATIENT IS WILLING TO TRY EXTERNAL DEVICE TO ASSIST WITH HELPING HER STAY DRY SHE IS INCONTINENT OF URINE AND HAS BEEN FOR YEARS. PATIENT STATES SHE HAS TO WEAR BRIEFS AT HOME, THAT IS WHY SHE WANTED TO KEEP THE HILLIARD CATHETER IN.
--- NOTE | 2018-12-29 08:38 | NUR ---
PUREWICK APPLIED TO PATIENT AT THIS TIME. NO DISTRESS.
[2018-12-29] MEDS ORDERED: TESSALON PERLE100 MG PO (09:47)
[2018-12-29 10:52] VITALS: BP 145/86
--- NOTE | 2018-12-29 11:06 | NUR ---
PUREWICK WORKING WELL WITH SOME SLIGHT LEAKAGE NOTED. 600 IN CANISTER THUS FAR AND PATIENTS PAD AND GOWN WERE SOAKED. NO DISTRESS. PATIENT UPSET AND DOES NOT FEEL THAT SHE IS READY TO LEAVE THE HOSPITAL FOR THE ALF TODAY.
--- NOTE | 2018-12-29 11:14 | NUR ---
PATIENT WILL FOLLOW UP WITH PRIMIARY CARE FOR FLU SHOT SHE HAS HAD RESP FAILURE HERE UPON ADMIT.
[2018-12-29 11:53] LABS: APPEARANCE CLEAR (CLEAR); BILIRUBIN NEGATIVE (NEGATIVE); COLOR STRAW (YELLOW); GLUCOSE NEGATIVE (NEGATIVE); KETONE NEGATIVE (NEGATIVE); NITRITE NEGATIVE (NEGATIVE); PROTEIN NEGATIVE (NEGATIVE); SPECIFIC GRAVITY 1.005 (1.005-1.020); UROBILINOGEN NORMAL (NORMAL)
[2018-12-29 11:54] LABS: BACTERIA FEW /hpf (NEGATIVE); EPITHELIAL CELLS NSEEN /hpf (0-5); WHITE CELLS - URINE NSEEN /hpf (NEGATIVE)
--- NOTE | 2018-12-29 13:43 | MORECARE ---
CASE MANAGEMENT DISCHARGE SUMMARY PATIENT: ADRIEN BERGERON UNIT: [id number] ADM DATE: 12/21/18 AGE: 78 : 38 SEX: F ROOM/BED: D.9313 AUTHOR: PA,DOC PHYSICIAN: REFERRING PHYSICIAN: BOB MOMIN MD DATE OF SERVICE: 12/29/18 Discharge Plan Patient Name: ADRIEN BERGERON Facility: [facility]:[place] : 1940 Planned Disposition: [facility] Facility Anticipated Discharge Date: 12/28/18 Discharge Date: Expected LOS: 7 Initial Reviewer: [id number] Initial Review Date: 12/21/2018 Generated: 12/29/18 2:43 pm Comments DCP- Discharge Planning Updated by [id number]: Carl Kay on 12/29/18 12:[address] Patient Name: ADRIEN BERGERON Encounter No: [id number] : 1940 Primary Insurance: MEDICARE A & B Anticipated DC Date: 12-28-2018 Planned Disposition: Mcc Facility External Planned Provider: [facility], MEDICARE REHAB BED DCP follow-up note: CM RECEIVED DISCHARGE ORDER FROM PRIMARY CARE, CALLED AND SPOKE TO HANY AT [facility], THEY WILL ACCEPT TODAY AND WILL ARRANGE TRANSPORTATION. CM FAXED DISCHARGE INFORMATION TO [facility] AT [phone] HAMMER WHO ADVISED THAT PT IS HAVING CHEST DISCOMFORT TODAY, DR. HAMMER HAS PUT PT ON MEDINEB TREATMENTS AND IT WOULD NOT HURT FOR PT TO HAVE ONE MORE DAY OF TREATMENT AND DISCHARGE TOMORROW. DR. MOMIN NOTIFIED. HANY AT [facility] NOTIFIED, THEY WILL ACCEPT TOMORROW. CM SPOKE TO PT IN ROOM, ALSO PRESENT WAS PT'S BROTHER. PT REPORTS HER BROTHER WILL PICK HER UP TOMORROW AT 1000AM FOR TRANSPORT TO [facility]. ROUND CUTTER OPERATOR PRESENT AND INFORMED CM THAT PT CAN TRANSPORT WITHOUT OXYGEN SAFELY. PT'S BROTHER AGREED TO PROVIDE TRANSPORT TO REHAB TOMORROW. IMPORTANT MESSAGE FROM MEDICARE PROVIDED AND EXPLAINED. CM NOTIFIED HANY AT [facility]. FOR DISCHARGE TO REHAB ON 12-30-18, CALL NURSE REPORT TO BE CALLED TO [facility] AT [phone]. PT'S BROTHER TO PROVIDE TRANSPORTATION TO REHAB. MARIPOSA Otto DCP- Discharge Planning Updated by [id number]: Carl Kay on 12/28/18 4:[address] Patient Name: ADRIEN BERGERON Encounter No: [id number] : 1940 Primary Insurance: MEDICARE A & B Anticipated DC Date: 12-28-2018 Planned Disposition: Mcc Facility External Planned Provider: [facility], MEDICARE REHAB BED DCP follow-up note: CM RECEIVED CALL FROM HANY AT [facility], , THEY WILL ACCEPT AT DISCHARGE [facility] DOES NOT ACCEPT ADMITS ON WEEKENDS OR AFTER 2PM ON WEEKDAYS. PT NOTIFIED AND IN AGREEMENT WITH DISCHARGE PLAN. FOR DISCHARGE TO REHAB, FAX DISCHARGE INFORMATION TO [facility] AT [phone]; NURSE REPORT TO BE CALLED TO [facility] AT [phone]. [facility] TO ARRANGE VAN TRANSPORTATION. MARIPOSA Otto DCP- Discharge Planning Updated by [email or web address]: Carl Kay on 12/25/18 3:[address] Patient Name: ADRIEN BERGERON Encounter No: [id number] : 1940 Primary Insurance: MEDICARE A & B Anticipated DC Date: 12-28-2018 Planned Disposition: Mcc Facility External Planned Provider: [facility], MEDICARE REHAB BED DCP follow-up note: CM SPOKE TO PT IN ROOM REGARDING INPATIENT REHAB PRESCREENING ORDER. CM DISCUSSED AVAILABILITY OF REHAB SERVICES, LOCATIONS AND PROVIDERS. PT DOES NOT WANT INPATIENT REHAB AND WANTS REFERRED TO [facility] FOR REHAB SERVICES. PT HAS BEEN THERE BEFORE AND KNOWS SHE WILL RECEIVE GOOD SERVICES THERE. IMPORTANT MESSAGE FROM MEDICARE PROVIDED AND EXPLAINED. CARE TEAM MEMBERS ADVISED IN LATER MULTI DISCIPLINARY TEAM MEETING OF PT'S CHOICE FOR HALF-WAY REHAB. CM FAXED REHAB REFERRAL TO HANY AT [facility], . CM CALLED [facility] AT [phone], LEFT MESSAGE FOR HANY WHO HAS LEFT FOR THE DAY AT 1600 HOURS AND WILL BE BACK FRIDAY TO REVIEW THE REFERRAL FOR REHAB SERVICES. CM WAITING ADMISSION DETERMINATION FOR REHAB FROM [facility]. Carl Kay, CASE MANAGEMENT DCP- Discharge Planning Updated by [email or web address]: Terri Burke on 12/23/18 3:[address] Patient Name: ADRIEN BERGERON Admission Status: ER Accout number: [id number] Admission Date: 12-21-2018 : 1940 Admission Diagnosis:ACUTE RESPIRATORY FAILURE, UNSP W HYPOXIA OR HYPERCAPNI Attending: BOB MOMIN Current LOS: 2 Anticipated DC Date: Planned Disposition: Home Primary Insurance: MEDICARE A & B Discharge Planning Comments: CM met with patient to complete initial dc planning assessment. CM educated patient on the CM role and verbal consent given by patient to complete assessment. Patient lives at home alone where she is independent with her care. At discharge patient would like to possibly go to [facility] inpatient Rehab or [facility] for rehab and possibly longterm care. Patient states she is very weak and feels this is a safe discharge plan. PAIGE signed CM discussed availability of home health, rehab services, and medical equipment. Patient's brother will transport her home upon discharge. Patient has a nebulizer and home o2 / portable 02 ( unknown provider ) Patient denied known discharge needs at this time. CM will continue to follow and will assist as needed with dc plans/needs. Lcac Radar Operator/Navigator: Terri Turk DCP- Discharge Planning Updated by [id number]: Terri Burke on 12/22/18 11:[address] Patient Name: ADRIEN BERGERON Admission Status: ER Accout number: [id number] Admission Date: 12-21-2018 : 1940 Admission Diagnosis:ACUTE RESPIRATORY FAILURE, UNSP W HYPOXIA OR HYPERCAPNI Attending: BOB MOMIN Current LOS: 1 Anticipated DC Date: Planned Disposition: Home Primary Insurance: MEDICARE A & B Discharge Planning Comments: CM spoke with patient's brother Jocelin Henderson [phone]. Jocelin stated that patient lives alone and he is her only family. He stated that the patient has two daughters that she hasn't had contact with in over 30 yrs. Jocelin states that the patient sees multiple doctors but uncertain as to who they all are. He states that he takes her to her appointments about twice a month. Jocelin stated that she does have home 02 at his house and hers but that is all that he knows at this point. CM will need to re-evaluate this discharge plan once patient is off vent and alert. CM will continue to follow and assist as needed with discharge planning / needs Lcac Radar Operator/Navigator: Terri Turk DCPIA - Discharge Planning Initial Assessment Updated by [id number]: Terri Turk on 12/23/18 4:51 pm * Is the patient Alert and Oriented? Yes * How many steps to enter\exit or inside your home? * PCP VERSER * Pharmacy [facility] * Preadmission Environment Home Alone * ADLs Independent * Other Equipment 02. PORT 02, NEBULIZER, WALKER, CANE * List name and contact numbers for known caregivers / representatives who currently or will assist patient after discharge: JOCELIN HENDERSON - [phone] * Verbal permission to speak to the caregivers and representatives has been obtained from the patient. Yes * Community resources currently utilized None * Additional services required to return to the preadmission environment? No * Can the patient safely return to the preadmission environment? Yes * Has this patient been hospitalized within the prior 30 days at any hospital? No Coverage Notice Reviewer: [id number] - Terri Turk Notice Issued Date-Time: 12/23/2018 11:30 Notice Type: Patient Choice Letter Notice Delivered To: Patient Relationship to Patient: Self Dog Show Judge Name: Delivery Method: HAND - Hand Delivered Diana Days: Prior Verbal Notification: Recipient Understood Notice: Yes Recipient Signature: Yes Med Rec Note Co-signed by Attending: Coverage Notice Comment: Reviewer: [id number] Lynn Kay Notice Issued Date-Time: 12/25/2018 8:45 Notice Type: IM Discharge Notice Notice Delivered To: Patient Relationship to Patient: Dog Show Judge Name: Delivery Method: HAND - Hand Delivered Diana Days: Prior Verbal Notification: Recipient Understood Notice: Yes Recipient Signature: Yes Med Rec Note Co-signed by Attending: Coverage Notice Comment: Reviewer: [id number] Lynn Kay Notice Issued Date-Time: 12/29/2018 13:20 Notice Type: IM Discharge Notice Notice Delivered To: Patient Relationship to Patient: Dog Show Judge Name: Delivery Method: HAND - Hand Delivered Diana Days: Prior Verbal Notification: Recipient Understood Notice: Yes Recipient Signature: Yes Med Rec Note Co-signed by Attending: Coverage Notice Comment: Last DP export: 12/28/18 4:08 p Patient Name: ADRIEN BERGERON Page [id number] at 1343 All edits/amendments must be made on the electronic document DICTATION DATE: 12/29/18 1343 MULTIMEDIA SPECIALIST: SOPHIE 12/29/18 1343 RPT#: [id number] DC DATE: STATUS: ADM IN [facility] [address] [place] [address] END OF REPORT
[2018-12-29 13:48] VITALS: BP 190/84
--- NOTE | 2018-12-29 14:24 | NUR ---
PATIENT OOB TO RESTROOM WITH CAREER CENTER ADVISOR. NO DISTRESS. PUREWICK IS WORKING WELL FOR THE PATIENT.
[2018-12-29 16:10] VITALS: BP 148/86
--- NOTE | 2018-12-29 17:41 | NUR ---
INCONTINENT CARE PROVIDED, PUREWICK LEAKED. NO DISTRESS. CONSUMED PM MEAL WITH NO DISTRESS. CALL LIGHT VENANCIO DAILY.
[2018-12-29 20:00] VITALS: BP 105/64
[2018-12-30] VITALS: BP 109/68
[2018-12-30 04:00] VITALS: BP 149/70
--- NOTE | 2018-12-30 07:30 | NUR ---
A/A/OX4. STATES SHE IS BEING DISCHARGED TODAY TO [facility] AND REALLY NOT WANTING TO GO THERE. NO REQUESTS VOICED AND DENIES ANY PAIN OR NAUSEA. ASSESSMENT COMPLETED AND WILL CONTINUE POC. CALL LIGHT IN REACH.
[2018-12-30 07:36] LABS: ALBUMIN 2.3 g/dL (3.4-5.0); ALKALINE PHOSPHATASE 71 U/L (46-116); ALT (SGPT) 37 U/L (10-68); BILIRUBIN - TOTAL 0.74 mg/dL (0.2-1.3); CALC OSMOLALITY 280 mosm/kg (275-300); CARBON DIOXIDE 33.3 mmol/L (21.0-32.0); CHLORIDE - SERUM 105 mmol/L (98-107); CREATININE - SERUM 0.4 mg/dL (0.6-1.3); GLUCOSE 93 mg/dL (74-106); POTASSIUM - SERUM 3.2 mmol/L (3.5-5.1); PROTEIN - SERUM 5.4 g/dL (6.4-8.2); SODIUM 142 mmol/L (136-145); UREA NITROGEN 7 mg/dL (7-18); eGFR NON AFRICAN AMERICAN > 90 mL/min (90-120)
[2018-12-30 07:42] LABS: HEMATOCRIT 38.5 % (36.0-48.0); HEMOGLOBIN 12.6 g/dL (12-16); MCH 29.4 pg (26.0-34.0); MCHC 32.7 g/dL (31.0-37.0); MCV 89.7 fL (80.0-100.0); MEAN PLATELET VOLUME 11.5 fL (7.4-10.4); PLATELET COUNT 207 10x3/uL (130-400); RBC 4.29 10x6/uL (4.00-5.40); RDW 15.1 % (11.5-14.5); WBC 9.9 10x3/uL (4.8-10.8)
--- NOTE | 2018-12-30 08:57 | NUR ---
FLU SHOT DEFERRED AT THIS TIME PATIENT IS IN RESP DISTRESS AND BEING [facility]. TO FOLLOW UP NEXT WEEK WITH PRIMARY, DR MEDINA.
[2018-12-30 09:10] LABS: EOSINOPHILS 10 % (0-7); LYMPHOCYTES 14 % (15-50); MONOCYTES 6 % (2-11); NEUTROPHILS 68 % (40-80); PLATELET ESTIMATE NORMAL
--- NOTE | 2018-12-30 10:29 | NUR ---
DISCHARGE INSTRUCTIONS REVIEWED WITH PT AND VERBALIZES UNDERSTANDING. PACKET FOR [facility] GIVEN TO PT. IV DC'D WITH CATH TIP INTACT. LEFT FLOOR VIA W/C WITH ALL PERSONAL BELONGINGS. LEFT FACILITY VIA PRIVATE VEHICLE WITH HER BROTHER.
--- NOTE | 2018-12-30 12:05 | MORECARE ---
CASE MANAGEMENT DISCHARGE SUMMARY PATIENT: ADRIEN BERGERON UNIT: [id number] ADM DATE: 12/21/18 AGE: 78 : 38 SEX: F ROOM/BED: D.9494 AUTHOR: PA,DOC PHYSICIAN: REFERRING PHYSICIAN: BOB MOMIN MD DATE OF SERVICE: 12/30/18 Discharge Plan Patient Name: ADRIEN BERGERON Facility: [facility]:[place] : 1940 Planned Disposition: Fpc Facility Anticipated Discharge Date: 12/30/18 Discharge Date: 12/30/2018 Expected LOS: 9 Initial Reviewer: [id number] Initial Review Date: 12/21/2018 Generated: 12/30/18 1:05 pm Comments DCP- Discharge Planning Updated by [id number]: Carl Kay on 12/29/18 12:[address] Patient Name: ADRIEN BERGERON Encounter No: [id number] : 1940 Primary Insurance: MEDICARE A & B Anticipated DC Date: 12-28-2018 Planned Disposition: Fpc Facility External Planned Provider: [facility], MEDICARE REHAB BED DCP follow-up note: CM RECEIVED DISCHARGE ORDER FROM PRIMARY CARE, CALLED AND SPOKE TO HANY AT [facility], THEY WILL ACCEPT TODAY AND WILL ARRANGE TRANSPORTATION. CM FAXED DISCHARGE INFORMATION TO [facility] AT [phone] HAMMER WHO ADVISED THAT PT IS HAVING CHEST DISCOMFORT TODAY, DR. HAMMER HAS PUT PT ON MEDINEB TREATMENTS AND IT WOULD NOT HURT FOR PT TO HAVE ONE MORE DAY OF TREATMENT AND DISCHARGE TOMORROW. DR. MOMIN NOTIFIED. HANY AT [facility] NOTIFIED, THEY WILL ACCEPT TOMORROW. CM SPOKE TO PT IN ROOM, ALSO PRESENT WAS PT'S BROTHER. PT REPORTS HER BROTHER WILL PICK HER UP TOMORROW AT 1000AM FOR TRANSPORT TO [facility]. PRODUCTION SUPERINTENDENT HYDRO PRESENT AND INFORMED CM THAT PT CAN TRANSPORT WITHOUT OXYGEN SAFELY. PT'S BROTHER AGREED TO PROVIDE TRANSPORT TO REHAB TOMORROW. IMPORTANT MESSAGE FROM MEDICARE PROVIDED AND EXPLAINED. CM NOTIFIED HANY AT [facility]. FOR DISCHARGE TO REHAB ON 12-30-18, CALL NURSE REPORT TO BE CALLED TO [facility] AT [phone]. PT'S BROTHER TO PROVIDE TRANSPORTATION TO REHAB. MARIPOSA Otto DCP- Discharge Planning Updated by [id number]: Carl Kay on 12/28/18 4:[address] Patient Name: ADRIEN BERGERON Encounter No: [id number] : 1940 Primary Insurance: MEDICARE A & B Anticipated DC Date: 12-28-2018 Planned Disposition: Fpc Facility External Planned Provider: [facility], MEDICARE REHAB BED DCP follow-up note: CM RECEIVED CALL FROM HANY AT [facility], , THEY WILL ACCEPT AT DISCHARGE [facility] DOES NOT ACCEPT ADMITS ON WEEKENDS OR AFTER 2PM ON WEEKDAYS. PT NOTIFIED AND IN AGREEMENT WITH DISCHARGE PLAN. FOR DISCHARGE TO REHAB, FAX DISCHARGE INFORMATION TO [facility] AT [phone]; NURSE REPORT TO BE CALLED TO [facility] AT [phone]. [facility] TO ARRANGE VAN TRANSPORTATION. MARIPOSA Otto DCP- Discharge Planning Updated by [id number]: Carl Kay on 12/25/18 3:[address] Patient Name: ADRIEN BERGERON Encounter No: [id number] : 1940 Primary Insurance: MEDICARE A & B Anticipated DC Date: 12-28-2018 Planned Disposition: Fpc Facility External Planned Provider: [facility], MEDICARE REHAB BED DCP follow-up note: CM SPOKE TO PT IN ROOM REGARDING INPATIENT REHAB PRESCREENING ORDER. CM DISCUSSED AVAILABILITY OF REHAB SERVICES, LOCATIONS AND PROVIDERS. PT DOES NOT WANT INPATIENT REHAB AND WANTS REFERRED TO [facility] FOR REHAB SERVICES. PT HAS BEEN THERE BEFORE AND KNOWS SHE WILL RECEIVE GOOD SERVICES THERE. IMPORTANT MESSAGE FROM MEDICARE PROVIDED AND EXPLAINED. CARE TEAM MEMBERS ADVISED IN LATER MULTI DISCIPLINARY TEAM MEETING OF PT'S CHOICE FOR DETENTION REHAB. CM FAXED REHAB REFERRAL TO HANY AT [facility], . CM CALLED [facility] AT [phone], LEFT MESSAGE FOR HANY WHO HAS LEFT FOR THE DAY AT 1600 HOURS AND WILL BE BACK FRIDAY TO REVIEW THE REFERRAL FOR REHAB SERVICES. CM WAITING ADMISSION DETERMINATION FOR REHAB FROM [facility]. Carl Kay, CASE MANAGEMENT DCP- Discharge Planning Updated by [id number]: Terri Turk on 12/23/18 3:[address] Patient Name: ADRIEN BERGERON Admission Status: ER Accout number: [id number] Admission Date: 12-21-2018 : 1940 Admission Diagnosis:ACUTE RESPIRATORY FAILURE, UNSP W HYPOXIA OR HYPERCAPNI Attending: BOB MOMIN Current LOS: 2 Anticipated DC Date: Planned Disposition: Home Primary Insurance: MEDICARE A & B Discharge Planning Comments: CM met with patient to complete initial dc planning assessment. CM educated patient on the CM role and verbal consent given by patient to complete assessment. Patient lives at home alone where she is independent with her care. At discharge patient would like to possibly go to [facility] inpatient Rehab or [facility] for rehab and possibly snf care. Patient states she is very weak and feels this is a safe discharge plan. PAIGE signed CM discussed availability of home health, rehab services, and medical equipment. Patient's brother will transport her home upon discharge. Patient has a nebulizer and home o2 / portable 02 ( unknown provider ) Patient denied known discharge needs at this time. CM will continue to follow and will assist as needed with dc plans/needs. Carpet Measurer: eTrri Turk DCP- Discharge Planning Updated by [id number]: Terri Burke on 12/22/18 11:[address] Patient Name: ADRIEN BERGERON Admission Status: ER Accout number: [id number] Admission Date: 12-21-2018 : 1940 Admission Diagnosis:ACUTE RESPIRATORY FAILURE, UNSP W HYPOXIA OR HYPERCAPNI Attending: BOB MOMIN Current LOS: 1 Anticipated DC Date: Planned Disposition: Home Primary Insurance: MEDICARE A & B Discharge Planning Comments: CM spoke with patient's brother Jocelin Henderson [phone]. Jocelin stated that patient lives alone and he is her only family. He stated that the patient has two daughters that she hasn't had contact with in over 30 yrs. Jocelin states that the patient sees multiple doctors but uncertain as to who they all are. He states that he takes her to her appointments about twice a month. Jocelin stated that she does have home 02 at his house and hers but that is all that he knows at this point. CM will need to re-evaluate this discharge plan once patient is off vent and alert. CM will continue to follow and assist as needed with discharge planning / needs Carpet Measurer: Terri Turk DCPIA - Discharge Planning Initial Assessment Updated by [id number]: Terri Turk on 12/23/18 4:51 pm * Is the patient Alert and Oriented? Yes * How many steps to enter\exit or inside your home? * PCP VERSER * Pharmacy [facility] * Preadmission Environment Home Alone * ADLs Independent * Other Equipment 02. PORT 02, NEBULIZER, WALKER, CANE * List name and contact numbers for known caregivers / representatives who currently or will assist patient after discharge: JOCELIN HENDERSON [facility]- [phone] * Verbal permission to speak to the caregivers and representatives has been obtained from the patient. Yes * Community resources currently utilized None * Additional services required to return to the preadmission environment? No * Can the patient safely return to the preadmission environment? Yes * Has this patient been hospitalized within the prior 30 days at any hospital? No External Providers External Provider: [facility] Next Contact Date: 12/25/2018 Service Request Date: Service Type: Resolution: Reviewer: Comments: Coverage Notice Reviewer: [id number] Lynn Turk Notice Issued Date-Time: 12/23/2018 11:30 Notice Type: Patient Choice Letter Notice Delivered To: Patient Relationship to Patient: Self Shellfish Farming Supervisor Name: Delivery Method: HAND - Hand Delivered Diana Days: Prior Verbal Notification: Recipient Understood Notice: Yes Recipient Signature: Yes Med Rec Note Co-signed by Attending: Coverage Notice Comment: Reviewer: [id number] Kay Notice Issued Date-Time: 12/25/2018 8:45 Notice Type: IM Discharge Notice Notice Delivered To: Patient Relationship to Patient: Shellfish Farming Supervisor Name: Delivery Method: HAND - Hand Delivered Diana Days: Prior Verbal Notification: Recipient Understood Notice: Yes Recipient Signature: Yes Med Rec Note Co-signed by Attending: Coverage Notice Comment: Reviewer: GREG Kay Notice Issued Date-Time: 12/29/2018 13:20 Notice Type: IM Discharge Notice Notice Delivered To: Patient Relationship to Patient: Shellfish Farming Supervisor Name: Delivery Method: HAND - Hand Delivered Diana Days: Prior Verbal Notification: Recipient Understood Notice: Yes Recipient Signature: Yes Med Rec Note Co-signed by Attending: Coverage Notice Comment: Last DP export: 12/29/18 12:43 p Patient Name: ADRIEN BERGERON Page [id number] at 1205 All edits/amendments must be made on the electronic document DICTATION DATE: 12/30/18 1205 VENEER CLIPPER: SOPHIE 12/30/18 1205 RPT#: [id number] DC DATE:12/30/18 STATUS: DIS IN [facility] [address] [place] [address] END OF REPORT
== END 2018-12-30 10:31 | DRG 208 ==
LOC: D.ER 00:58 → D.ICU 02:53 → D.M2 02:53
PROVIDERS: Family Medicine; ADMIT Internal Medicine Nephrology; ATTEND Internal Medicine Nephrology
PROC: 5A1935Z Respiratory Ventilation, Less than 24 Consecutive Hours (ICD-10-PCS; principal; 2018-12-21)
PROC: 0BH17EZ Insertion of Endotracheal Airway into Trachea, Via Natural or Artificial Opening (ICD-10-PCS; 2018-12-21)
PROC: 5A09457 Assistance with Respiratory Ventilation, 24-96 Consecutive Hours, Continuous Positive Airway Pressure (ICD-10-PCS; 2018-12-23)
DX: J96.01 Acute respiratory failure with hypoxia (principal); J69.0 Pneumonitis due to inhalation of food and vomit; G93.41 Metabolic encephalopathy; N39.0 Urinary tract infection, site not specified; J44.0 Chronic obstructive pulmonary disease with (acute) lower respiratory infection; J44.1 Chronic obstructive pulmonary disease with (acute) exacerbation; J39.8 Other specified diseases of upper respiratory tract; I95.9 Hypotension, unspecified; R68.0 Hypothermia, not associated with low environmental temperature; D64.9 Anemia, unspecified; E83.42 Hypomagnesemia; E87.6 Hypokalemia; I27.20 Pulmonary hypertension, unspecified; B96.20 Unspecified Escherichia coli [E. coli] as the cause of diseases classified elsewhere

== ENCOUNTER → 2019-02-03 13:56 | Outpatient (CLI) | payer MEDICARE, OTHER ==
[2018-12-21 12:37] VITALS: BMI 32.2
[~2019-02-03 13:56] MED LIST changes: +TESSALON PERLE100 MG PO
== END | disposition home or self-care (01) ==
LOC: D.RT 01-21 11:00
PROVIDERS: ATTEND Internal Medicine Pulmonary Disease
DX: J43.9 Emphysema, unspecified (principal); Q32.0 Congenital tracheomalacia

== ENCOUNTER 2019-06-23 15:05 | Inpatient (IN) | payer MEDICARE, OTHER ==
[~2019-06-23] VITALS: Ht 152.4 cm; Wt 71.4 kg
--- NOTE | ~2019-06-23 | HEMODYNAMI ---
PATIENT:ADRIEN BERGERON MEDICAL RECORD: [id number] : 36 LOCATION:[facility] D.2116 [facility] [id number] ADMISSION DATE: 06/24/19 Generatedon:06/24/201915:04 Patient name: ADRIEN BERGERON Patient #: [id number] : 1940 Date of study: 06/24/2019 Page: Of Hemodynamic Procedure Report Patient Data Patient Demographics Procedure consent was obtained First Name: ADRIEN Gender: Female Last Name: ELYSSA : 1940 [facility] Initial: BEATRIZ Age: 78 year(s) Patient #: [id number] Race: Unknown SSN: [id number] Additional ID: [id number] Contact details Address: [address] [address] State: [place] City: [place] Zip code: [address] Admission Admission Data Admission Date: 06/24/2019 Admission Time: 13:15 Arrival Date: 06/23/2019 Arrival Time: 16:51 Admit Source: Emergency Insurance Payor: Medicare department [facility] #: [id number] Room #: D.2116 Height (in.): 60 BSA: 1.68 (m2) Height (cm.): 152.4 BMI: 30.66 (kg/m2) Weight (lbs.): 157 Weight (kg.): 71.21 Lab Results Lab Result Date: 06/24/2019 Lab Result Time: 0:00 Biochemistry Name Units Result Min Max BUN mg/dl 11 --(-*--)-- 7 18 Creatinine mg/dl 0.8 --(-*--)-- 0.6 1.3 eGFR ml/min 73.24920 *-(----)-- 90 120 NONAFRICAN CBC Name Units Result Min Max Hemoglobin g/dl 12.7 -*(----)-- 13.5 17.5 Procedure Procedure Types Cath Procedure Diagnostic Procedure PPM/ICD PPM Dual Implant Sedation Charges Moderate Sedation up to 30 minutes Procedure Description Procedure Date Procedure Date: 06/24/2019 Procedure Start Time: 14:37 Procedure End Time: 14:58 Procedure Staff Name Function Ciarra Tompkins RT Monitor Aicha Bone RN Nurse Quan Carlson MD Assisting physician eLopoldo Wyatt MD Performing Physician Temo Hancock RT Scrub Procedure Data Cath Procedure Fluoroscopy Diagnostic fluoroscopy Total fluoroscopy Time: 1 time: 1 min min Diagnostic fluoroscopy Total fluoroscopy dose: dose: 11.34 mGy 11.34 mGy Contrast Material Contrast Material Type Amount (ml) Isovue 300 0 Estimated blood loss: 5 ml Procedure Complications No complications Procedure Medications Medication Administration Route Dosage Oxygen etCO2 Nasal cannula 2 l/min Lidocaine 1% added to field 20 0.9% NaCl I.V. Vancomycin I.V.P.B 1 g Vancomycin Topical 1 g Irrigation Versed I.V. 1 mg Fentanyl I.V. 50 mcg Versed I.V. 1 mg Fentanyl I.V. 50 mcg Versed I.V. 1 mg Fentanyl I.V. 50 mcg Fentanyl I.V. 50 mcg Versed I.V. 1 mg Hemodynamics Rest BSA: 1.68 (m2) HGB: 12.7 (g/dl) O2 Consumption: Estimated: 143.65 (ml/min) O2 Co nsumption indexed: Estimated:85.51 (ml/min/m) Heart Rate: 58 (bpm) Snapshots Pre Cath Intra NCS Post Cath Vital Signs Time Heart Resp SPO2 etCO2 NIBP (mmHg) Rhythm Pain Sedation Rate (ipm) (%) (mmHg) Status Level (bpm) 14:31:05 73 12 95 23.9 134/70(108) NSR (Missing) 10(A) 14:36:19 73 10 96 22.2 130/72(120) NSR (Missing) 10(A) 14:41:27 74 12 95 39.6 130/80(120) NSR (Missing) 10(A) 14:45:37 56 13 96 39.6 126/79(118) NSR (Missing) 10(A) 14:49:43 77 12 96 39.6 125/86(104) NSR (Missing) 10(A) 14:53:51 78 13 98 36.7 135/78(116) NSR (Missing) 10(A) 14:58:07 71 14 99 20.9 142/68(106) NSR (Missing) 10(A) Medications Time Medication Route Dose Verified Delivered Reason Notes Effecti veness by by 14:30:40 Oxygen etCO2 2 Quan Mina used for Nasal l/min Ervin Wyatt procedure cannula 14:30:54 Lidocaine added 20ml Quan Glass for local 1% to vial Ervin Carlson MD anesthetic field x2 14:31:12 0.9% NaCl I.V. kvo Quan Holcomb Per ml/hr Ervin Bone RN physician 14:31:35 Vancomycin I.V.P.B 1 g Samaritan Buffie Per Ervin Bone RN physician 14:31:57 Vancomycin Topical 1 g Quan Glass used for Irrigation Ervin Carlson MD procedure 14:32:04 Fentanyl I.V. 50 Samaritan Buffie for mcg Ervin Bone RN sedation 14:32:58 Versed I.V. 1 mg Samaritan Buffie for Ervin Bone RN sedation 14:37:47 Versed I.V. 1 mg Quan Gibbsie for Ervin Boen RN sedation 14:37:51 Fentanyl I.V. 50 Samaritan Buffie for mcg Ervin Bone RN sedation 14:44:46 Versed I.V. 1 mg Samaritan Buffie for Ervin Bone RN sedation 14:44:50 Fentanyl I.V. 50 Samaritan Buffie for mcg Ervin Bone RN sedation 14:51:38 Fentanyl I.V. 50 Samaritan Buffie for back mcg Ervin Bone RN pain 14:53:46 Versed I.V. 1 mg Quan Gibbsie for Ervin Bone RN sedation Procedure Log Time Note 13:43:35 Diagnostic Cath Status : Urgent 13:45:14 Admit Source: Emergency department 13:45:19 Arrival Date: 06/23/2019 4:51:00 PM 13:46:04 Insurance Payor : Medicare 13:46:14 Patient Height : 60 inches 13:46:18 Patient Weight : 157 lbs 13:46:38 Lab Result : eGFR NONAFRICAN 73.36828 ml/min 13:46:38 Lab Result : Hemoglobin 12.7 g/dl 13:46:38 Lab Result : BUN 11 mg/dl 13:46:38 Lab Result : Creatinine 0.8 mg/dl 13:46:45 Procedure Status PPM/ Gen Change/ Lead Revision/ Temp. 13:46:55 Aicha Bone RN sent for patient. Start room use. 13:46:56 Time tracking: Regular hours (M-F 7:00 - 5:00) 13:47:01 Plan of Care:Hemodynamics will remain stable., Cardiac rhythm will remain stable., Comfort level will be maintained., Respiratory function will remain adequate., Patient/ family verbilizes understanding of procedure., Procedure tolerated without complication., Recovers from procedure without complications.. 14:07:40 Patient received from Med II to CCL 3 Alert and oriented. Tansferred to table in Supine position. 14:07:43 Signed procedure consent form obtained from patient. 14:07:44 Warm blankets applied, and twan hugger turned on for patient comfort. 14:07:45 ECG and BP/O2 sat monitors applied to patient. 14:07:45 Correct patient and procedure confirmed by team. 14:24:38 IV started by Aicha Bone RN inright forearm with a 22 gauge IV catheter with 0.9% NaCl at KVO. 14:24:40 Lab results completed and on chart. 14:24:45 Left chest area was prepped with chlora-prep and draped in sterile fashion 14:24:46 Alarms reviewed by R. N. 14:24:47 Sharps counted by scrub and verified by R.N. 14:24:48 Physician arrived 14:24:49 Final Timeout: patient, procedure, and site verified with staff and physician. All members of the team are in agreement. 14:24:49 --------ALL STOP TIME OUT------ 14:24:55 Left chest site verified by team. 14:25:00 Fire Safety Assessment: A--An alcohol-based skin anteseptic being used preoperatively., C--Open oxygen or nitrous oxide is being used., D--An ESU, laser, or fiber-optic light is being used. 14:25:02 Physical assessment completed. ASA score P 2 - A patient with mild systemic disease as per Leopoldo Wyatt MD. 14:25:13 2) 60-89 Mildly reduced kidney function, and other findings (as for stage 1) point to kidney disease. 14:26:43 Maximum allowable contrast dose (3.7 X eGFR X 0.75)202 ml. 14:26:47 Sedation plan: IV Moderate Sedation Medication:Versed, Fentanyl 14:27:02 Use device set ERVIN PPM 14:27:03 2-0 Ticron Multipack ([id number]) opened to sterile field. 14:27:04 5-0 Monocryl PS2 [id number] opened to sterile field. 14:27:04 3-0 Vicryl Single Pack [id number] opened to sterile field. 14:27:05 Cautery Pushbutton Pencil opened to sterile field. 14:27:05 Cautery Tip Lithographic Press Operator opened to sterile field. 14:27:06 Mepilex Dressing ([id number]) opened to sterile field. 14:27:[address] Generator [id number] opened to sterile field. 14:29:12 Medtronic 4574-45 PPM Lead opened to sterile field. 14:29:14 Medtronic 4074-52 PPM Lead opened to sterile field. 14:30:40 Oxygen 2 l/min etCO2 Nasal cannula was administered by Leopoldo Wyatt MD; used for procedure; Verbal order read back and verified. 14:30:54 Lidocaine 1% 20ml vial x2 added to field was administered by Quan Carlson MD; for local anesthetic; Verbal order read back and verified. 14:31:12 0.9% NaCl kvo ml/hr I.V. was administered by Aicha Bone RN; Per physician; Verbal order read back and verified. 14:31:35 Vancomycin 1 g I.V.P.B was administered by Aicha Bone RN; Per physician; Verbal order read back and verified. 14:31:57 Vancomycin Irrigation 1 g Topical was administered by Quan Carlson MD; used for procedure; Verbal order read back and verified. 14:32:00 Vital chart was started 14:32:04 Fentanyl 50 mcg I.V. was administered by Aicha Bone RN; for sedation; Verbal order read back and verified. 14:32:58 Versed 1 mg I.V. was administered by Aicha Bone RN; for sedation; Verbal order read back and verified. 14:34:05 Baseline sample Acquired. 14:36:38 Full Disclosure recording started 14:36:38 Procedure started. 14:37:38 Medtronic passenger relations representative DHIRAJ RYDER present for procedure. 14:37:47 Versed 1 mg I.V. was administered by Aicha Bone RN; for sedation; Verbal order read back and verified. 14:37:48 Pre sharps counted by scrub and verified by RN: Sutures: 7; Sponges: 5; Stick needles: 2; Skin needles: 2; Blade: 1; Cautery: 1 14:37:51 Grounding pad site Left thigh. 14:37:51 Fentanyl 50 mcg I.V. was administered by Aicha Bone RN; for sedation; Verbal order read back and verified. 14:37:53 Grounding pad site free from injury. 14:37:58 Lidocaine 1% was administered to left subclavicular area by Quan Carlson MD . 14:38:00 Incision made to left subclavicular area. 14:39:52 Generator pocket made/opened. 14:41:43 Left subclavian vein accessed with 7Fr Peel Away Sheath. 14:41:46 Left subclavian vein accessed with 7Fr Peel Away Sheath. 14:44:02 Ventricular lead inserted and advanced. 14:44:46 Versed 1 mg I.V. was administered by Aicha Bone RN; for sedation; Verbal order read back and verified. 14:44:50 Fentanyl 50 mcg I.V. was administered by Aicha Bone RN; for sedation; Verbal order read back and verified. 14:44:52 Atrial lead inserted and advanced. 14:45:22 Ventricular lead positioned. 14:45:25 Atrial lead positioned. 14:45:28 Peel-a-way sheath was split and removed. 14:45:30 Peel-a-way sheath was split and removed. 14:47:24 Ventricular lead attachment was completed with 2-0 ticron. 14:47:27 Atrial lead attachment was completed with 2-0 ticron. 14:47:36 PPM Dual was attached to lead(s) and inserted into pocket. 14:47:59 Generator was sutured in place with 2-0 ticron. 14:49:25 Device pocket was irrigated with Vancomycin. 14:49:28 Subcutaneous closure was completed with 3-0 vicryl plus. 14:51:22 Skin closure was completed with 5-0 monocryl. 14:51:38 Fentanyl 50 mcg I.V. was administered by Aicha Bone RN; for back pain; Verbal order read back and verified. 14:51:54 Parameters-- Generator: Mode: DDDR. Lower Rate: 60bpm. Upper Rate: 130bpm. 14:52:27 Parameters--Ventricular P/R Wave: 15.1mV. Current: N/AmA; Threshold: 0.75V; Impedence: 1558OHMS. 14:52:46 Parameters--Atrial P/R Wave: 2.3mV. Current: N/AmA; Threshold: 0.4V; Impedence: 627OHMS. 14:52:51 Lt Chest incision was dressed with Mepilex dressing. 14:53:46 Versed 1 mg I.V. was administered by Aicha Bone RN; for sedation; Verbal order read back and verified. 14:55:32 Immobilizer Large opened to sterile field. 14:56:45 Procedure ended.(Physican Out) 14:56:53 Fluoroscopy time 01.00 minutes. 14:56:58 Fluoroscopy dose: 11.34 mGy 14:56:58 Flurop Dose total: 11.34 14:57:06 Dose Area Product 164.14 mGy/cm. 14:57:10 Contrast amount:Isovue 300 0ml. 14:57:11 Maximum allowable dose exceeded? No. 14:57:13 Sharps counted by scrub and verified by R.N. 14:57:14 Insertion/operative site no bleeding no hematoma. 14:57:21 Post-op/insertion site Left Chest area dressed using a Mepilex dressing. 14:57:36 Post procedure rhythm: paced 14:57:38 Estimated blood loss: 5 ml 14:57:40 Patient needs reinforcement of post procedure teaching. 14:57:40 Post procedure instruction explained to patient.Patient verbalizes understanding. 14:57:53 Procedure type changed to Cath procedure, Diagnostic procedure, PPM/ICD, PPM Dual Implant, Sedation Charges, Moderate Sedation up to 30 minutes 14:57:55 Procedure and supply charges have been captured, reviewed, submitted and are correct. 14:58:03 Procedure Complication : No complications 14:58:05 Vital chart was stopped 14:58:13 See physician's report for complete and final results. 14:58:13 Operative report dictated upon procedure completion. 14:58:16 Report given to [facility]. 14:58:19 Patient transfered to [facility] with Stretcher. 14:58:24 Full Disclosure recording stopped 14:58:24 Procedure ended. 14:58:47 End room use (Document Last) Device Usage Item Name Manufacture Quantity Catalog Hospital Part Current Minima l Lot# / Number Charge Number Stock Stock Serial# Code 2-0 Ticron Ethicon 7 [id number] 35125 [id number] 5 Multipack ([id number]) 3-0 Vicryl Ethicon 1 [id number] 578324 420552 5 Single Pack [id number] 5-0 Monocryl Ethicon 1 Y495G 003810 793553 354953 5 PS2 Y495G Cautery Tip Microtek 1 [id number] 054470 725592 446418 5 Lithographic Press Operator [employer] Inc[employer] Cautery Microtek 1 [id number] 56183 300760 5 Pushbutton Medical Inc. Pencil Mepilex Cardinal 1 [id number] 946026 197352 994948 5 Dressing Health ([id number]) Medtronic Medtronic 1 W1DR01 227215 [id number] 270226 [id number] EXP Generator 10-18-2020 W1DR01 Medtronic Medtronic 1 4574-45 672794 850338 829903 5 [id number] 4574-45 PPM EXP Lead 03-02-2021 Medtronic Medtronic 1 4074-52 217191 846623 191255 5 4074-52 PPM Lead Immobilizer [place] 1 [id number] 970659 364978 172784 5 [facility] Signature Audit Buda Stage Time Signature Unsigned Intra-Procedure 06/24/2019 Ciarra Tompkins 3:00:54 PM RT(R) Intra-Procedure 06/24/2019 Aicha Bone RN 3:02:04 PM Intra-Procedure 06/24/2019 Leopoldo Helm 3:04:44 PM Kumar [facility] [address] [id number]
--- NOTE | ~2019-06-23 | OP ---
PATIENT NAME: ADRIEN BERGERON MEDICAL RECORD: [id number] :36 LOCATION:D.M2 D.2116 ADMISSION DATE:06/24/19 SURGEON: ASAD MUELLER MD DATE OF OPERATION: 06/24/2019 PREOPERATIVE DIAGNOSIS: Sick sinus syndrome with pauses. POSTOPERATIVE DIAGNOSIS: Sick sinus syndrome with pauses. PROCEDURE: Left subclavian vein dual lead pacemaker placement. SURGEON: Asad Mueller MD REPORT OF PROCEDURE: The patient's left chest was prepped and draped in sterile fashion. A 20 mL of 1% lidocaine was infused into the subcutaneous tissues. A transverse incision was made on the left superior lateral chest and a subcutaneous pouch was made over the pectoral fascia. Needle was used to cannulate the left subclavian vein and guidewires were advanced with ease. Fluoro was used to note that the wires were in good position in the venous system. Dilator trocar devices were placed over the wires and the wires and dilators were removed. The leads were advanced through the trocars and into the superior vena cava. At this point, Dr. Rangel positioned the leads appropriately in the atrium and ventricle. Once the leads were noted to be in good position, then these were sutured into place with 2-0 TiCron. The leads were affixed to the pacemaker, which was then placed into the subcutaneous pouch. The pacemaker was sutured to the pectoral fascia with a single interrupted 2-0 TiCron. We irrigated out the wound with antibiotic solution and then closed the subcutaneous tissues with interrupted 3-0 Vicryl. The skin was closed with running subcutaneous 5-0 Monocryl and dressed appropriately. COMPLICATIONS: None. CONDITION: Stable. ANESTHESIA: Local MAC. BLOOD LOSS: Minimal. TRANSINT:[id number] Voice Confirmation ID: [id number] DOCUMENT ID: [id number] ASAD MUELLER MD CC: [id number] DICTATION DATE: 06/24/19 1500 TOBACCO PACKING MACHINE OPERATOR: 06/24/19 1553 ADM IN [address] [place] [address]
--- NOTE | 2019-06-23 15:11 | NUR ---
PTS BP 148/117 (133) UPON ARRIVAL. DOPAMINE GTT D/C'D
[2019-06-23 15:24] VITALS: BP 130/72
[2019-06-23 15:44] LABS: BASOPHILS 0.1 % (0-2); EOSINOPHILS 0.2 % (0-7); HEMATOCRIT 41.4 % (36.0-48.0); HEMOGLOBIN 13.1 g/dL (12-16); IMMATURE GRANULOCYTES 0.4 % (0-5); LYMPHOCYTES 8.4 % (15-50); MCHC 31.6 g/dL (31.0-37.0); MCV 88.5 fL (80.0-100.0); MEAN PLATELET VOLUME 9.9 fL (7.4-10.4); MONOCYTES 4.2 % (2-11); NEUTROPHILS 86.7 % (40-80); PLATELET COUNT 217 10x3/uL (130-400); RBC 4.68 10x6/uL (4.00-5.40); RDW 14.1 % (11.5-14.5); WBC 10.8 10x3/uL (4.8-10.8)
[2019-06-23 15:55] LABS: APTT 26.9 SECONDS (22.8-39.4); INR 1.01 (0.85-1.17); PROTIME 13.3 SECONDS (11.6-15.0)
[2019-06-23 16:04] LABS: BILIRUBIN NEGATIVE (NEGATIVE); GLUCOSE NEGATIVE (NEGATIVE); KETONE NEGATIVE (NEGATIVE); NITRITE POSITIVE (NEGATIVE); UROBILINOGEN NORMAL (NORMAL)
[2019-06-23 16:05] LABS: BACTERIA MANY /hpf (NEGATIVE); RED CELLS - URINE OCC /hpf (0-5); WHITE CELLS - URINE 0-5 /hpf (NEGATIVE)
[2019-06-23 16:21] LABS: CALC OSMOLALITY 277 mosm/kg (275-300); CALCIUM 9.3 mg/dL (8.5-10.1); CARBON DIOXIDE 28.3 mmol/L (21.0-32.0); CHLORIDE - SERUM 101 mmol/L (98-107); CREATININE - SERUM 0.8 mg/dL (0.6-1.3); GLUCOSE 102 mg/dL (74-106); POTASSIUM - SERUM 3.9 mmol/L (3.5-5.1); SODIUM 140 mmol/L (136-145); UREA NITROGEN 9 mg/dL (7-18); eGFR NON AFRICAN AMERICAN 73 mL/min (90-120)
[2019-06-23 16:37] LABS: ALBUMIN 3.4 g/dL (3.4-5.0); ALKALINE PHOSPHATASE 153 U/L (30-120); ALT (SGPT) 34 U/L (10-68); BILIRUBIN - TOTAL 0.83 mg/dL (0.2-1.3); CREATINE KINASE 72 UL (21-215); MAGNESIUM - SERUM 1.9 mg/dL (1.8-2.4); PROTEIN - SERUM 7.7 g/dL (6.4-8.2)
[2019-06-23 16:38] LABS: TROPONIN-I < 0.017 ng/mL (0.000-0.060)
--- NOTE | 2019-06-23 19:00 | NUR ---
ATTEMPTED TO CALL REPORT, NURSE STATED TO CALL BACK AFTER SHIFT CHANGE, CHARGE NURSE AWARE.
[2019-06-23 19:13] VITALS: BP 123/76
[2019-06-23 19:33] LABS: CKMB 0.7 U/L (0.0-3.6); CREATINE KINASE 80 UL (21-215)
[2019-06-23 19:35] LABS: TROPONIN-I < 0.017 ng/mL (0.000-0.060)
[2019-06-23] MEDS ORDERED: OMEPRAZOLE20 M1 PO (21:08)
[2019-06-23 23:03] VITALS: BP 169/82; Ht 152.4 cm; Wt 71.4 kg
[2019-06-24 04:00] VITALS: BP 143/68
[2019-06-24 06:22] LABS: BASOPHILS 0.5 % (0-2); EOSINOPHILS 2.7 % (0-7); HEMOGLOBIN 12.7 g/dL (12-16); IMMATURE GRANULOCYTES 0.3 % (0-5); LYMPHOCYTES 25.3 % (15-50); MCHC 31.8 g/dL (31.0-37.0); MCV 88.1 fL (80.0-100.0); MONOCYTES 8.8 % (2-11); NEUTROPHILS 62.4 % (40-80); PLATELET COUNT 217 10x3/uL (130-400); RBC 4.54 10x6/uL (4.00-5.40); RDW 14.2 % (11.5-14.5)
[2019-06-24 06:27] LABS: WBC 6.4 10x3/uL (4.8-10.8)
[2019-06-24 06:34] LABS: INR 1.03 (0.85-1.17); PROTIME 13.4 SECONDS (11.6-15.0)
[2019-06-24 06:50] LABS: CALC OSMOLALITY 275 mosm/kg (275-300); CARBON DIOXIDE 27.4 mmol/L (21.0-32.0); CHLORIDE - SERUM 104 mmol/L (98-107); CHOL - HDL RATIO 2.6 ratio (2.3-4.1); CHOLESTEROL, TOTAL 203 mg/dL (0-200); CKMB 0.4 U/L (0.0-3.6); CREATINE KINASE 67 UL (21-215); CREATININE - SERUM 0.8 mg/dL (0.6-1.3); GLUCOSE 89 mg/dL (74-106); HDL CHOLESTEROL 79 mg/dL (32-96); LDL CHOLESTEROL 110 mg/dL (0-100); LDL-HDL RATIO 1.4 ratio (1.5-3.5); MAGNESIUM - SERUM 2.1 mg/dL (1.8-2.4); POTASSIUM - SERUM 3.9 mmol/L (3.5-5.1); SODIUM 139 mmol/L (136-145); THYROID STIMULATING HORMONE 1.17 uIU/mL (0.36-3.74); TRIGLYCERIDE 71 mg/dL (30-200); TROPONIN-I < 0.017 ng/mL (0.000-0.060); UREA NITROGEN 11 mg/dL (7-18); eGFR NON AFRICAN AMERICAN 73 mL/min (90-120)
--- NOTE | 2019-06-24 07:25 | NUR ---
AM ROUNDS COMPLETED. INTRODUCED MYSELF TO PT PRIMARY RN FOR TODAYS SHIFT. PT IS A&O SITTING UP ON EDGE OF BED RESTING QUIETLY. SHIFT ASSESSMENT COMPLETED. PT DENIES ANY CURRENT PAIN OR NEEDS AT THIS TIME. WILL REVIEW CHART AND ORDERS AND CPOC.
--- NOTE | 2019-06-24 09:43 | NUR ---
ASSISTED PT TO AND FROM BR. PTS GAIT IS SLOW AND STEADY. PT DENIES ANY DIZZINESS OR PAIN. TELEMETRY RUNNING NORMAL SINUS IN THE 70S. PT IS NPO AFTER BREAKFAST FOR POSSIBLE PACEMAKER PLACEMENT. PT VERBALIZED UNDERSTANDING AND DENIES ANY QUESTIONS OR CONCERNS. CL IN REACH, BED IN LOWEST, SIDE RAILS X2. WILL CPOC.
--- NOTE | 2019-06-24 09:58 | NUR ---
PHYSICAL THERAPY AT BEDSIDE FOR CONSULTATION.
[2019-06-24 10:54] VITALS: BP 144/69
[2019-06-24 12:00] VITALS: BP 150/70
--- NOTE | 2019-06-24 14:00 | NUR ---
PT LEAVING FOR PACEMAKER INSERTION AT THIS TIME. CONSENTS OBTAINED AND IN CHART.
--- NOTE | 2019-06-24 15:42 | NUR ---
PT BACK FROM HAVING HER PACEMAKER PLACED. L.ARM IN SLING AND PT INSTRUCTED NOT TO RAISE HER ARM ABOVE HER HEAD. LEFT CHEST HAS A DRSG CDI. VSS. TELEMETRY BACK IN PLACE. PT HAS HER VANCOMYCIN FINISHING INFUSING AT THIS TIME. PROVIDED PT WITH A FOOD TRAY. NO CURRENT NEEDS. WILL CTM.
[2019-06-24 16:00] VITALS: BP 103/75
[2019-06-24 16:08] LABS: HEMATOCRIT 41.4 % (36.0-48.0); HEMOGLOBIN 13.1 g/dL (12-16); MCH 28.5 pg (26.0-34.0); MCHC 31.6 g/dL (31.0-37.0); MCV 90.2 fL (80.0-100.0); MEAN PLATELET VOLUME 10.4 fL (7.4-10.4); RBC 4.59 10x6/uL (4.00-5.40); RDW 14.1 % (11.5-14.5); WBC 6.6 10x3/uL (4.8-10.8)
[2019-06-24 16:13] LABS: APTT 25.4 SECONDS (22.8-39.4); INR 0.99 (0.85-1.17)
[2019-06-24 16:16] LABS: ANION GAP 14.4 mmol/L (8-16); CREATININE - SERUM 0.8 mg/dL (0.6-1.3); POTASSIUM - SERUM 4.4 mmol/L (3.5-5.1)
--- NOTE | 2019-06-24 16:31 | MORECARE ---
CASE MANAGEMENT DISCHARGE SUMMARY [id number] ADM DATE: 06/24/19 AGE: 78 : 38 SEX: F ROOM/BED: D.[facility] AUTHOR: RGISEL WINN PHYSICIAN: REFERRING PHYSICIAN: SHANNEN LYLE MD DATE OF SERVICE: 06/24/19 Discharge Plan Patient Name: ADRIEN BERGERON Facility: [facility]:[place] : 1940 Planned Disposition: Inpatient Rehab Anticipated Discharge Date: 06/25/19 Discharge Date: Expected LOS: 1 Initial Reviewer: [email or web address] Initial Review Date: 06/24/2019 Generated: 06/24/19 5:30 pm Patient Name: ADRIEN BERGERON Page 00779 at 1631 All edits/amendments must be made on the electronic document DICTATION DATE: 06/24/19 1630 BRICKLAYER PAVING BRICK: SOPHIE 06/24/19 1630 RPT#: [id number] DC DATE: STATUS: ADM IN [facility] [address] [place] [address] END OF REPORT
--- NOTE | 2019-06-24 16:35 | NUR ---
VSS AND PT SITTING UP IN BED EATING DINNER. L.ARM REMAINS IN SLING AND DRSG TO L.CHEST CDI NO S/S OF BLEEDING OR HEMATOMA NOTED. TELEMETRY RUNNING NORMAL SINUS PER [facility] MAR. NO CURRENT NEEDS. WILL PASS ON REPORT TO ONCOMING NURSE.
--- NOTE | 2019-06-24 16:38 | MORECARE ---
CASE MANAGEMENT DISCHARGE SUMMARY PATIENT: ADRIEN BERGERON UNIT: [id number] ADM DATE: 06/24/19 AGE: 78 : 38 SEX: F ROOM/BED: D.[facility] AUTHOR: GRISEL WINN PHYSICIAN: REFERRING PHYSICIAN: SHANNEN LYLE MD DATE OF SERVICE: 06/24/19 Discharge Plan Patient Name: ADRIEN BERGERON Facility: [facility]:[place] : 1940 Planned Disposition: Inpatient Rehab Anticipated Discharge Date: 06/25/19 Discharge Date: Expected LOS: 1 Initial Reviewer: [email or web address] Initial Review Date: 06/24/2019 Generated: 06/24/19 5:37 pm DCPIA - Discharge Planning Initial Assessment Updated by [email or web address]: Carl Kay on 06/24/19 4:32 pm * Is the patient Alert and Oriented? Yes * How many steps to enter\exit or inside your home? * PCP DR. MEDINA * Pharmacy [facility] * Preadmission Environment Home Alone * ADLs Independent * Equipment Cane Nebulizer Oxygen Walker * Other Equipment HOME AND PORTABLE OXYGEN - [facility] * List name and contact numbers for known caregivers / representatives who currently or will assist patient after discharge: BROTHER NORTON, * Verbal permission to speak to the caregivers and representatives has been obtained from the patient. N/A * Community resources currently utilized None * Please name any agencies selected above. NONE * Additional services required to return to the preadmission environment? Yes * Can the patient safely return to the preadmission environment? Yes * Has this patient been hospitalized within the prior 30 days at any hospital? No Last DP export: 06/24/19 3:31 pm Patient Name: ADRIEN BERGERON Page 86010 at 1638 All edits/amendments must be made on the electronic document DICTATION DATE: 06/24/191636 PETROLEUM GEOLOGY FACULTY MEMBER: SOPHIE 06/24/19 163 RPT#: [id number] DC DATE: STATUS: ADM IN [facility] [address] [place] [address] END OF REPORT
--- NOTE | 2019-06-24 16:44 | MORECARE ---
CASE MANAGEMENT DISCHARGE SUMMARY [facility] [id number] ADM DATE: 06/24/19 AGE: 78 : 38 SEX: F ROOM/BED: D.6213 AUTHOR: PA,DOC PHYSICIAN: REFERRING PHYSICIAN: SHANNEN LYLE MD DATE OF SERVICE: 06/24/19 Discharge Plan Patient Name: ADRIEN BERGERON Facility: [facility]:[place] : 1940 Planned Disposition: Inpatient Rehab Anticipated Discharge Date: 06/25/19 Discharge Date: Expected LOS: 1 Initial Reviewer: [email or web address] Initial Review Date: 06/24/2019 Generated: 06/24/19 5:44 pm Comments DCP- Discharge Planning Updated by [email or web address]: Carl Kay on 06/24/19 3:[address] Patient Name: ADRIEN BERGERON Admission Status: ER Accout number: [id number] Admission Date: 06-24-2019 : 1940 Admission Diagnosis: Attending: MARIA EDL CARMEN Current LOS: 1 Anticipated DC Date: 06-25-2019 Planned Disposition: Inpatient Rehab Primary Insurance: MEDICARE A & B PLANNED EXTERNAL PROVIDER: [facility] INPATIENT [facility] Discharge Planning Comments: CM MET WITH PT IN ROOM TO DISCUSS DISCHARGE PLANNING AND NEEDS. PT REPORTS LIVING AT HOME INDEPENDENTLY AND ALONE. PT HAS HOME AND PORTABLE OXYGEN FROM [facility], A CANE AND WALKER THAT SHE DOES NOT USE ( STATES I STILL DRIVE AND TAKE CARE OF MYSELF) AND A NEBULIZER. PT HAS NO OUTSIDE SERVICES ASSISTING IN THE HOME. CM DISCUSSED AVAILABILITY OF HOME HEALTH, REHAB SERVICES AND MEDICAL EQUIPMENT. PT REPORTS SHE DOES NOT FEEL SAFE GOING HOME BECAUSE OF BACK PAIN. PT WOULD LIKE REHAB AT [facility] AND SHE IS THINKING ABOUT [facility] FOR REHAB. PT SIGNED CONSENT FOR REHAB BUT DOES NOT WANT ANYTHING SENT TO [facility] YET. PT REPORTS THAT SHE NEEDS TO STAY AWAY FROM THE [facility]. CM EXPLAINED THAT THE SAFEST ENVIRONMENT IS HOME QUARANTINE IF PT IS ABLE TO SELF CARE. PT STATES SHE FELL WHILE SHOPPING FOR FOOD SHE HAD BEEN IN HER HOUSE FOR 17 DAYS. PT STILL CONCERNED ABOUT HER BACK AND ASKED FOR REHAB AT [facility]. CM EXPLAINED THAT CM WILL REQUEST THE EVALUATION TO SEE OF SHE CAN BE ACCEPTED. PT, REPORTS HER BROTHER WILL PICK HER UP FOR DISCHARGE HOME. CM NOTIFIED BEDSIDE NURSE AND CARYL OF INPATIENT REHAB. CM WAITING ON INPATIENT REHAB PRESCREENING RESULT. Stitch Bonding Machine Tender Helper: Carl Kay DCPIA - Discharge Planning Initial Assessment Updated by [email or web address]: Carl Kay on 06/24/19 4:32 pm * Is the patient Alert and Oriented? Yes * How many steps to enter\exit or inside your home? * PCP DR. MEDINA * Pharmacy [facility] * Preadmission Environment Home Alone * ADLs Independent * Equipment Cane Nebulizer Oxygen Walker * Other Equipment HOME AND PORTABLE OXYGEN - [facility] * List name and contact numbers for known caregivers / representatives who currently or will assist patient after discharge: BROTHER NORTON, * Verbal permission to speak to the caregivers and representatives has been obtained from the patient. N/A * Community resources currently utilized None * Please name any agencies selected above. NONE * Additional services required to return to the preadmission environment? Yes * Can the patient safely return to the preadmission environment? Yes * Has this patient been hospitalized within the prior 30 days at any hospital? No Coverage Notice Reviewer: [email or web address] - Carl Kay Notice Issued Date-Time: 06/24/2019 16:00 Notice Type: Patient Choice Letter Notice Delivered To: Patient Relationship to Patient: Tunnel Elastic Operator Chainstitch Name: Delivery Method: HAND - Hand Delivered Diana Days: Prior Verbal Notification: Recipient Understood Notice: Yes Recipient Signature: Yes Med Rec Note Co-signed by Attending: Coverage Notice Comment: 1 INPATIENT AT [facility] Last DP export: 06/24/19 3:37 pm Patient Name: ADRIEN BERGERON Page 94005 at 1644 All edits/amendments must be made on the electronic document DICTATION DATE: 06/24/191643 YACHT MASTER: SOPHIE 06/24/191643 RPT#: [id number] DC DATE: STATUS: ADM IN [facility] [address] [place] [address] END OF REPORT
[2019-06-24 20:00] VITALS: BP 106/51
[2019-06-25 04:00] VITALS: BP 104/54
[2019-06-25 05:23] LABS: CALC OSMOLALITY 273 mosm/kg (275-300); CALCIUM 8.9 mg/dL (8.5-10.1); CARBON DIOXIDE 26.4 mmol/L (21.0-32.0); CHLORIDE - SERUM 103 mmol/L (98-107); CREATININE - SERUM 0.7 mg/dL (0.6-1.3); GLUCOSE 110 mg/dL (74-106); MAGNESIUM - SERUM 2.1 mg/dL (1.8-2.4); POTASSIUM - SERUM 3.8 mmol/L (3.5-5.1); SODIUM 137 mmol/L (136-145); UREA NITROGEN 11 mg/dL (7-18); eGFR NON AFRICAN AMERICAN 85 mL/min (90-120)
[2019-06-25 05:30] LABS: BASOPHILS 0.3 % (0-2); EOSINOPHILS 3.5 % (0-7); HEMATOCRIT 39.5 % (36.0-48.0); HEMOGLOBIN 12.4 g/dL (12-16); IMMATURE GRANULOCYTES 0.4 % (0-5); LYMPHOCYTES 13.3 % (15-50); MCH 27.7 pg (26.0-34.0); MCHC 31.4 g/dL (31.0-37.0); MCV 88.4 fL (80.0-100.0); MEAN PLATELET VOLUME 10.9 fL (7.4-10.4); MONOCYTES 7.9 % (2-11); NEUTROPHILS 74.6 % (40-80); PLATELET COUNT 191 10x3/uL (130-400); RBC 4.47 10x6/uL (4.00-5.40); RDW 14.2 % (11.5-14.5); WBC 7.1 10x3/uL (4.8-10.8)
[2019-06-25 09:00] VITALS: BP 135/69
--- NOTE | 2019-06-25 09:16 | OP ---
PATIENT NAME: ADRIEN BERGERON MEDICAL RECORD: [id number] :36 LOCATION:D.M2 D.2116 ADMISSION DATE:06/24/19 SURGEON: SHANNEN VELEZ MD DATE OF OPERATION: 06/24/2019 PROCEDURE: Lead portion of permanent pacer placement. INDICATION: Sick sinus syndrome with pauses and junctional escape as well as nonconducted P waves. DESCRIPTION OF PROCEDURE: After the left subclavian vein cannulated via modified Seldinger technique via Dr. Carlson, first under fluoroscopic guidance, we placed the RV lead in the RV apex without difficulty. After adequate R waves and thresholds were obtained. Again under fluoroscopic guidance, we placed the right atrial lead in the right atrial appendage without difficulty. After adequate P waves and thresholds were obtained, leads were attached to appropriate poles of the generator and the pocket was closed via Dr. Carlson. IMPRESSION: Successful lead portion of permanent pacemaker placement. ESTIMATED BLOOD LOSS: Minimal. DISPOSITION: To the floor, stable. COMPLICATIONS: None. TRANSINT:[id number] Voice Confirmation ID: [id number] DOCUMENT ID: [id number] SHANNEN VELEZ MD at 0916 CC: [id number] DICTATION DATE: 06/24/19 1500 ARTIFICIAL FLOWER MAKER: 06/24/19 1550 ADM IN [place] [id number] [place] [address]
--- NOTE | 2019-06-25 10:06 | NUR ---
REHAB PRESCREENING CONSULT RECIEVED AND THE CHART HAS BEEN REVIEWED. SHE IS A GOOD CANDIDATE FOR THE ARU AND WILL BE ACCEPTED WHEN PHYSICIAN FEELS SHE IS MEDICALLY STABLE FOR DISCHARGE. DISCUSSED WITH THE CM ANDREIA CABELLO. MICHAEL OVERTON RN CLINICAL LIAISON, REHAB
[2019-06-25 12:00] VITALS: BP 117/64
--- NOTE | 2019-06-25 12:23 | NUR ---
PT SITTING UP IN BED EATING LUNCH AT THIS TIME. PT A/O X4. VSS. NO S/S OF DISTRESS AT THIS TIME. BED LOW CALL LIGHT WITHIN REACH. WILL CONTINUE TO MONITOR.
[2019-06-25] MEDS ORDERED: OMNICEF300 MG PO (12:27)
--- NOTE | 2019-06-25 12:32 | MORECARE ---
CASE MANAGEMENT DISCHARGE SUMMARY [id number] ADM DATE: 06/24/19 AGE: 78 : 38 SEX: F ROOM/BED: D.2933 AUTHOR: PA,DOC PHYSICIAN: REFERRING PHYSICIAN: SHANNEN LYLE MD DATE OF SERVICE: 06/25/19 Discharge Plan Patient Name: ADRIEN BERGERON Facility: [facility]:[place] : 1940 Planned Disposition: Inpatient Rehab Anticipated Discharge Date: 06/25/19 Discharge Date: Expected LOS: 1 Initial Reviewer: [email or web address] Initial Review Date: 06/24/2019 Generated: 06/25/19 1:32 pm Comments DCP- Discharge Planning Updated by [email or web address]: aCrl Kay on 06/24/19 3:[address] Patient Name: ADRIEN BERGERON Admission Status: ER Accout number: [id number] Admission Date: 06-24-2019 : 1940 Admission Diagnosis: Attending: MARIA DEL CARMEN Current LOS: 1 Anticipated DC Date: 06-25-2019 Planned Disposition: Inpatient Rehab Primary Insurance: MEDICARE A & B PLANNED EXTERNAL PROVIDER: [facility] INPATIENT REHAB Discharge Planning Comments: CM MET WITH PT IN ROOM TO DISCUSS DISCHARGE PLANNING AND NEEDS. PT REPORTS LIVING AT HOME INDEPENDENTLY AND ALONE. PT HAS HOME AND PORTABLE OXYGEN FROM [facility], A CANE AND WALKER THAT SHE DOES NOT USE ( STATES I STILL DRIVE AND TAKE CARE OF MYSELF) AND A NEBULIZER. PT HAS NO OUTSIDE SERVICES ASSISTING IN THE HOME. CM DISCUSSED AVAILABILITY OF HOME HEALTH, REHAB SERVICES AND MEDICAL EQUIPMENT. PT REPORTS SHE DOES NOT FEEL SAFE GOING HOME BECAUSE OF BACK PAIN. PT WOULD LIKE REHAB AT [facility] AND SHE IS THINKING ABOUT [facility] FOR REHAB. PT SIGNED CONSENT FOR REHAB BUT DOES NOT WANT ANYTHING SENT TO [facility] YET. PT REPORTS THAT SHE NEEDS TO STAY AWAY FROM THE [facility]. CM EXPLAINED THAT THE SAFEST ENVIRONMENT IS HOME QUARANTINE IF PT IS ABLE TO SELF CARE. PT STATES SHE FELL WHILE SHOPPING FOR FOOD SHE HAD BEEN IN HER HOUSE FOR 17 DAYS. PT STILL CONCERNED ABOUT HER BACK AND ASKED FOR REHAB AT [facility]. CM EXPLAINED THAT CM WILL REQUEST THE EVALUATION TO SEE OF SHE CAN BE ACCEPTED. PT, REPORTS HER BROTHER WILL PICK HER UP FOR DISCHARGE HOME. CM NOTIFIED BEDSIDE NURSE AND CARYL OF INPATIENT REHAB. CM WAITING ON INPATIENT REHAB PRESCREENING RESULT. Flat Machine Cutter: Carl Kay DCPIA - Discharge Planning Initial Assessment Updated by [id number]: Carl Kay on 06/24/19 4:32 pm * Is the patient Alert and Oriented? Yes * How many steps to enter\exit or inside your home? * PCP DR. MEDINA * Pharmacy [facility] * Preadmission Environment Home Alone * ADLs Independent * Equipment Cane Nebulizer Oxygen Walker * Other Equipment HOME AND PORTABLE OXYGEN - [facility] * List name and contact numbers for known caregivers / representatives who currently or will assist patient after discharge: BROTHER NORTON, * Verbal permission to speak to the caregivers and representatives has been obtained from the patient. N/A * Community resources currently utilized None * Please name any agencies selected above. NONE * Additional services required to return to the preadmission environment? Yes * Can the patient safely return to the preadmission environment? Yes * Has this patient been hospitalized within the prior 30 days at any hospital? No Coverage Notice Reviewer: [email or web address] - Carl Kay Notice Issued Date-Time: 06/24/2019 16:00 Notice Type: Patient Choice Letter Notice Delivered To: Patient Relationship to Patient: Work Car Operator Name: Delivery Method: HAND - Hand Delivered Diana Days: Prior Verbal Notification: Recipient Understood Notice: Yes Recipient Signature: Yes Med Rec Note Co-signed by Attending: Coverage Notice Comment: 1 INPATIENT AT [facility] 2 [facility] Last DP export: 06/24/19 3:44 pm Patient Name: ADRIEN BERGERON Page [id number] at 1232 All edits/amendments must be made on the electronic document DICTATION DATE: 06/25/19 1232 LOST CHARGE CARD CLERK: SOPHIE 06/25/19 1232 RPT#: [id number] DC DATE: STATUS: ADM IN [facility] [address] [facility] [place] [address] END OF REPORT
--- NOTE | 2019-06-25 12:39 | MORECARE ---
CASE MANAGEMENT DISCHARGE SUMMARY [id number] ADM DATE: 06/24/19 AGE: 78 : 38 SEX: F ROOM/BED: D.9156 AUTHOR: PADOC PHYSICIAN: REFERRING PHYSICIAN: SHANNEN LYLE MD DATE OF SERVICE: 06/25/19 Discharge Plan Patient Name: ADRIEN BERGERON Facility: [facility]:[place] : 1940 Planned Disposition: Inpatient Rehab Anticipated Discharge Date: 06/25/19 Discharge Date: Expected LOS: 1 Initial Reviewer: [email or web address] Initial Review Date: 06/24/2019 Generated: 06/25/19 1:38 pm Comments DCP- Discharge Planning Updated by [email or web address]: Carl Kay on 06/25/19 11:[address] Patient Name: ADRIEN BERGERON Encounter No: [id number] : 1940 Primary Insurance: MEDICARE A & B Anticipated DC Date: 06-25-2019 Planned Disposition: Inpatient Rehab External Planned Provider: [facility] INPATIENT REHAB DCP follow-up note: CM SPOKE TO MICHAEL OF INPATIENT REHAB, THEY PLAN TO ACCEPT TODAY IF PT IS READY TO DISCHARGE. CM SPOKE TO DR. LYLE WHO HAS DISCUSSED DISCHARGE WITH PT WHO IS WILLING FOR DISCHARGE TO REHAB AT [facility] BUT PREFERS [facility]. CM MET WITH PT IN ROOM, DISCUSSED REHAB OPTIONS. CM INFORMED PT THAT IT WOULD BE MOST LIKELY FRIDAY BEFORE [facility] COULD ACCEPT PT PT DID NOT LET CM SEND REFERRAL YESTERDAY AND THE NURSING FACILITY WILL NOT ACCEPT PT AFTER 2PM ON FRIDAY AND DOES NOT DO WEEKEND ADMISSIONS. PT STATES SHE WOULD STAY AT [facility] TO COMPLETE HER REHAB AND THEN GO HOME FROM THE HOSPITAL. CARYL OF INPATIENT REHAB NOTIFIED. [facility] INPATIENT REHAB TO CONTACT MED 2 NURSE WITH ROOM NUMBER WHEN READY TO ACCEPT PT AND NURSE REPORT. Carl Kay, CASE MANAGEMENT DCP- Discharge Planning Updated by [email or web address]: Carl Kay on 06/24/19 3:[address] Patient Name: ADRIEN BERGERON Admission Status: ER Accout number: [id number] Admission Date: 06-24-2019 : 1940 Admission Diagnosis: Attending: MARIA DEL CARMEN Current LOS: 1 Anticipated DC Date: 06-25-2019 Planned Disposition: Inpatient Rehab Primary Insurance: MEDICARE A & B PLANNED EXTERNAL PROVIDER: [facility] INPATIENT REHAB Discharge Planning Comments: CM MET WITH PT IN ROOM TO DISCUSS DISCHARGE PLANNING AND NEEDS. PT REPORTS LIVING AT HOME INDEPENDENTLY AND ALONE. PT HAS HOME AND PORTABLE OXYGEN FROM [facility], A CANE AND WALKER THAT SHE DOES NOT USE ( STATES I STILL DRIVE AND TAKE CARE OF MYSELF) AND A NEBULIZER. PT HAS NO OUTSIDE SERVICES ASSISTING IN THE HOME. CM DISCUSSED AVAILABILITY OF HOME HEALTH, REHAB SERVICES AND MEDICAL EQUIPMENT. PT REPORTS SHE DOES NOT FEEL SAFE GOING HOME BECAUSE OF BACK PAIN. PT WOULD LIKE REHAB AT [facility] AND SHE IS THINKING ABOUT [facility] FOR REHAB. PT SIGNED CONSENT FOR REHAB BUT DOES NOT WANT ANYTHING SENT TO [facility] YET. PT REPORTS THAT SHE NEEDS TO STAY AWAY FROM THE [facility]. CM EXPLAINED THAT THE SAFEST ENVIRONMENT IS HOME QUARANTINE IF PT IS ABLE TO SELF CARE. PT STATES SHE FELL WHILE SHOPPING FOR FOOD SHE HAD BEEN IN HER HOUSE FOR 17 DAYS. PT STILL CONCERNED ABOUT HER BACK AND ASKED FOR REHAB AT [facility]. CM EXPLAINED THAT CM WILL REQUEST THE EVALUATION TO SEE OF SHE CAN BE ACCEPTED. PT, REPORTS HER BROTHER WILL PICK HER UP FOR DISCHARGE HOME. CM NOTIFIED BEDSIDE NURSE AND CARYL OF INPATIENT REHAB. CM WAITING ON INPATIENT REHAB PRESCREENING RESULT. Parallel Computing Software Engineer: Carl Kay DCPIA - Discharge Planning Initial Assessment Updated by [email or web address]: Carl Kay on 06/24/19 4:32 pm * Is the patient Alert and Oriented? Yes * How many steps to enter\exit or inside your home? * PCP DR. MEDINA * Pharmacy [facility] OR [facility] * Preadmission Environment Home Alone * ADLs Independent * Equipment Cane Nebulizer Oxygen Walker * Other Equipment HOME AND PORTABLE OXYGEN - [facility] * List name and contact numbers for known caregivers / representatives who currently or will assist patient after discharge: BARBARA NORTONER, * Verbal permission to speak to the caregivers and representatives has been obtained from the patient. N/A * Community resources currently utilized None * Please name any agencies selected above. NONE * Additional services required to return to the preadmission environment? Yes * Can the patient safely return to the preadmission environment? Yes * Has this patient been hospitalized within the prior 30 days at any hospital? No Coverage Notice Reviewer: [id number] Lynn Kay Notice Issued Date-Time: 06/24/2019 16:00 Notice Type: Patient Choice Letter Notice Delivered To: Patient Relationship to Patient: Calibration Checker Name: Delivery Method: HAND - Hand Delivered Diana Days: Prior Verbal Notification: Recipient Understood Notice: Yes Recipient Signature: Yes Med Rec Note Co-signed by Attending: Coverage Notice Comment: 1 INPATIENT AT [facility] 2 [facility] Last DP export: 06/25/19 11:32 am Patient Name: ADRIEN BERGERON Page [id number] at 1239 All edits/amendments must be made on the electronic document DICTATION DATE: 06/25/19 1238 BEHAVIOR THERAPIST: SOPHIE 06/25/19 1238 RPT#: [id number] DC DATE: STATUS: ADM IN [facility] [address] [place] [address] END OF REPORT
[2019-06-25] MEDS ORDERED: TYLENOL ARTHRI650 MG PO (17:23)
[2019-06-25] MEDS ORDERED: MELATONIN 3 MG1 TAB PO (17:24)
== END 2019-06-25 14:48 | DRG 243 ==
LOC: D.ER 15:05 → D.M2 16:51 → OBSVTIME 16:51 → D.M2 06-24 13:15
PROVIDERS: Family Medicine; Internal Medicine Interventional Cardiology; ADMIT Family Medicine; ATTEND Family Medicine
PROC: 02H63JZ Insertion of Pacemaker Lead into Right Atrium, Percutaneous Approach (ICD-10-PCS; 2019-06-24)
PROC: 02HK3JZ Insertion of Pacemaker Lead into Right Ventricle, Percutaneous Approach (ICD-10-PCS; 2019-06-24)
PROC: 0JH606Z Insertion of Pacemaker, Dual Chamber into Chest Subcutaneous Tissue and Fascia, Open Approach (ICD-10-PCS; principal; 2019-06-24 13:46)
DX: I49.5 Sick sinus syndrome (principal); N39.0 Urinary tract infection, site not specified; J96.11 Chronic respiratory failure with hypoxia; R55 Syncope and collapse; K21.9 Gastro-esophageal reflux disease without esophagitis; J44.9 Chronic obstructive pulmonary disease, unspecified; J39.8 Other specified diseases of upper respiratory tract; I27.20 Pulmonary hypertension, unspecified

== ENCOUNTER 2019-06-25 14:21 | Inpatient (IN) | payer MEDICARE, OTHER ==
[~2019-06-25] VITALS: Ht 152.4 cm; Wt 72.6 kg
[~2019-06-25 14:21] MED LIST changes: +OMEPRAZOLE20 M1 PO; +OMNICEF300 MG PO
[2019-06-25] MEDS ORDERED: TYLENOL ARTHRI650 MG PO (17:23)
[2019-06-25] MEDS ORDERED: MELATONIN 3 MG1 TAB PO (17:24)
[2019-06-25 18:17] VITALS: BP 134/61; BMI 31.3
--- NOTE | 2019-06-25 20:06 | NUR ---
ADMITTED TO PHYSICAL REHAB AND SERVICES OF DR LOFTON. AWAKE AND ALERT. RESPIRATIONS UNLABORED. ORIENTED X 4. LEFT ARM IN SLING. DRESSING DRY AND INTACT TO PACEMAKER SITE. NO ACUTE DISTRESS NOTED. CALL LIGHT IN REACH. SEE ADMISSION ASSESSMEMT AND HISTORY.
[2019-06-25 21:45] VITALS: BP 136/69
--- NOTE | 2019-06-26 02:07 | NUR ---
CONTINUES SLEEPING WITH RESPIRATIONS UNLABORED. NO DISTRESS NOTED. SLING IN PLACE TO LEFT ARM.
--- NOTE | 2019-06-26 04:49 | NUR ---
QUIET HOURS. RESTING IN BED WITH NO DISTRESS NOTED. SLING IN PLACE TO LEFT ARM.
[2019-06-26 05:37] LABS: BASOPHILS 0.2 % (0-2); HEMATOCRIT 38.7 % (36.0-48.0); HEMOGLOBIN 12.3 g/dL (12-16); IMMATURE GRANULOCYTES 0.2 % (0-5); LYMPHOCYTES 22.4 % (15-50); MCH 28.1 pg (26.0-34.0); MCHC 31.8 g/dL (31.0-37.0); MCV 88.6 fL (80.0-100.0); MEAN PLATELET VOLUME 10.3 fL (7.4-10.4); MONOCYTES 8.5 % (2-11); NEUTROPHILS 65.7 % (40-80); PLATELET COUNT 181 10x3/uL (130-400); RBC 4.37 10x6/uL (4.00-5.40)
[2019-06-26 05:53] LABS: ANION GAP 7.1 mmol/L (8-16); CARBON DIOXIDE 26.6 mmol/L (21.0-32.0); POTASSIUM - SERUM 3.7 mmol/L (3.5-5.1)
[2019-06-26 05:58] LABS: CREATININE - SERUM 0.9 mg/dL (0.6-1.3)
[2019-06-26 08:00] VITALS: BP 142/74
--- NOTE | 2019-06-26 09:50 | NUR ---
PT AM MEDS ADMINISTERD. PT DENIES NEEDS. WCTM.
[2019-06-26 09:57] VITALS: Ht 152.4 cm; Wt 72.6 kg
--- NOTE | 2019-06-26 18:27 | NUR ---
PT RESTING IN BED, DENIES NEEDS. WCTM.
[2019-06-26 19:36] VITALS: BP 167/62
--- NOTE | 2019-06-26 19:44 | NUR ---
AWAKE AND ALERT. RESTING IN BED WITH O2/2L ON PER NASAL CANNULA. RESPIRATIONS UNLABORED. NO ACUTE DISTRESS NOTED. LEFT ARM IN SLING.
--- NOTE | 2019-06-26 23:21 | NUR ---
RESTING IN BED WITH EYES CLOSED AND RESPIRATIONS UNLABORED. NO DISTRESS NOTED.
--- NOTE | 2019-06-27 01:07 | NUR ---
RESTING WITH EYES CLOSED AND RESPIRATIONS UNLABORED.
--- NOTE | 2019-06-27 05:18 | NUR ---
RESTING IN BED AWAKE. REQUEST MESSAGE BE LEFT FOR DR FOR SOMETHING FOR SLEEP AND COUGHING. MESSAGE LEFT ON ROUND SHEET FOR DR. LOFTON.
[2019-06-27 08:00] VITALS: BP 162/66
--- NOTE | 2019-06-27 09:30 | NUR ---
PT AM MEDS ADMINISTERD. PT DENIES NEEDS. WCTM.
--- NOTE | 2019-06-27 20:08 | NUR ---
AWAKE AND ALERT. RESTING IN BED WITH RESPIRAITONS UNLABORED. LEFT ARM IN SLING. PACEMAKER SITE DRESSING INTACT. NOTED COUGHING. MEDICATED FOR COUGH SEE MAY. CALL LIGHT IN REACH.
[2019-06-27 20:33] VITALS: BP 140/67
--- NOTE | 2019-06-28 02:16 | NUR ---
SLEEPING WITH RESPIRATIONS UNLABORED. NO DISTRESS NOTED.
--- NOTE | 2019-06-28 05:17 | NUR ---
MEDICATED FOR COUGH. SEE MAR. RESTING IN BED WITH CALL LIGHT IN REACH.
[2019-06-28 06:15] LABS: BASOPHILS 0.5 % (0-2); EOSINOPHILS 4.1 % (0-7); HEMATOCRIT 37.1 % (36.0-48.0); HEMOGLOBIN 11.9 g/dL (12-16); LYMPHOCYTES 21.3 % (15-50); MCH 28.1 pg (26.0-34.0); MCHC 32.1 g/dL (31.0-37.0); MCV 87.7 fL (80.0-100.0); MEAN PLATELET VOLUME 10.1 fL (7.4-10.4); MONOCYTES 8.3 % (2-11); NEUTROPHILS 65.8 % (40-80); PLATELET COUNT 190 10x3/uL (130-400); RBC 4.23 10x6/uL (4.00-5.40); RDW 14.1 % (11.5-14.5); WBC 6.4 10x3/uL (4.8-10.8)
[2019-06-28 06:33] LABS: ANION GAP 11.7 mmol/L (8-16); CALCIUM 9.5 mg/dL (8.5-10.1); CARBON DIOXIDE 27.1 mmol/L (21.0-32.0); CREATININE - SERUM 0.9 mg/dL (0.6-1.3); POTASSIUM - SERUM 3.8 mmol/L (3.5-5.1)
[2019-06-28 07:54] VITALS: BP 139/73
--- NOTE | 2019-06-28 08:00 | NUR ---
PATIENT IS ALERT/ORIENT. CALL LIGHT WITHIN REACH. VOICES NO NEEDS AT THIS TIME. WILL CONTINUE WITH PLAN OF CARE.
--- NOTE | 2019-06-28 10:10 | NUR ---
PATIENT REFUSDED SHOWER FROM OCCUPATIONAL THERAPIST
--- NOTE | 2019-06-28 18:55 | NUR ---
BEDSIDE REPORT COMPLETE. PT SITTING UP IN BED WATCHING TV. ALERT AND ORIENTED X4. DENIES ANY NEEDS OR PAIN. NO SIGNS OF ACUTE DISTRESS NOTED. PT EDUCATED ON USING CALL LIGHT FOR HELP AND WAITING FOR ASSISTANCE. PT STATES THAT WHEN SHE HAS TO GO TO BATHROOM SHE CAN NOT WAIT FOR ASSISTANCE AND IS FINE TAKING HERSELF IN W/C. AGAIN NURSE INFORMED PT NOT TO GET UP AND OFFERED HER TO SIGN A WAIVER. PT REFUSED TO SIGN WAIVER. BUT REFUSES TO USE CALL LIGHT FOR ASSIST. PT IS CLOSE TO NURSES STATION AND DOOR IS LEFT OPEN. BED ALARM ON. CPOC
[2019-06-28 20:45] VITALS: BP 180/85
--- NOTE | 2019-06-29 01:13 | NUR ---
PT LYING IN BED ON LEFT SIDE EYES CLOSED RESTING COMFORTABLY. RR EVEN AND UNLABORED. CALL LIGHT AND WATER WITHIN REACH. FALL PRECAUTIONS IN PLACE. CPOC
--- NOTE | 2019-06-29 04:14 | NUR ---
PT LYING IN BED ON LEFT SIDE EYES CLOSED RESTING. RR EVEN AND UNLABORED. CALL LIGHT AND WATER WITHIN REACH. BED ALARM ON. CPOC
[2019-06-29 09:56] VITALS: BP 136/82
--- NOTE | 2019-06-29 10:25 | NUR ---
PT AM MEDS ADMINISTERED. PT DENIES NEEDS. WCTM.
--- NOTE | 2019-06-29 10:51 | NUR ---
PATIENT ADMITTED TO REHAB FROM ACUTE FLOOR. DR. MEDINA IS PATIENTS PCP. DME AT HOME IS O2, FROM [facility], CANE, WALKER AND A NEBULIZER. DISCHARGE PLANS ARE FOR HER TO RETURN HOME AND HER BROTHER WILL TRANSPORT HER HOME. WILL CONTINUE TO FOLLOW WITH PATIENT.
--- NOTE | 2019-06-29 18:58 | NUR ---
BEDSIDE REPORT COMPLETE. PT SITTING UP IN BED WATCHING TV. ALERT AND ORIENTED X4. DENIES ANY NEEDS OR PAIN. LEFT CHEST DRESSING C/D/I. RR EVEN AND UNLABORED. CALL LIGHT AND WATER WITHIN REACH. FALL PRECAUTIONS IN PLACE. CPOC
[2019-06-29 20:10] VITALS: BP 158/119
--- NOTE | 2019-06-30 00:14 | NUR ---
PT LYING IN BED ON RIGHT SIDE EYES CLOSED RESTING. RR EVEN AND UNLABORED. CALL LIGHT AND WATER WITHIN REACH. BED ALARM ON. CPOC
--- NOTE | 2019-06-30 03:47 | NUR ---
PT LYING IN BED ON RIGHT SIDE EYES CLOSED RESTING. RR EVEN AND UNLABORED. CALL LIGHT WITHIN REACH. CPOC
--- NOTE | 2019-06-30 06:39 | NUR ---
PT SITTING UP IN W/C. DENIES ANY NEEDS OR PAIN. RR EVEN AND UNLABORED. CALL LIGHT WITHIN REACH. CPOC
[2019-06-30 07:13] LABS: BASOPHILS 0.5 % (0-2); EOSINOPHILS 5.7 % (0-7); HEMATOCRIT 38.3 % (36.0-48.0); HEMOGLOBIN 12.3 g/dL (12-16); IMMATURE GRANULOCYTES 0.3 % (0-5); LYMPHOCYTES 30.6 % (15-50); MCH 28.3 pg (26.0-34.0); MCHC 32.1 g/dL (31.0-37.0); MCV 88.2 fL (80.0-100.0); MEAN PLATELET VOLUME 10.6 fL (7.4-10.4); MONOCYTES 9.1 % (2-11); NEUTROPHILS 53.8 % (40-80); PLATELET COUNT 205 10x3/uL (130-400); RBC 4.34 10x6/uL (4.00-5.40); RDW 14.1 % (11.5-14.5); WBC 5.8 10x3/uL (4.8-10.8)
[2019-06-30 07:25] LABS: ANION GAP 13.3 mmol/L (8-16); CARBON DIOXIDE 25.3 mmol/L (21.0-32.0); CREATININE - SERUM 0.9 mg/dL (0.6-1.3); POTASSIUM - SERUM 3.6 mmol/L (3.5-5.1)
[2019-06-30 08:56] VITALS: BP 154/70
--- NOTE | 2019-06-30 11:26 | NUR ---
PATIENT ALERT AND ORIENTED. SHE IS CURRENTLY IN HER WHEELCHAIR GOING AROUND THE UNIT. DENIES NEEDS.
--- NOTE | 2019-06-30 12:55 | NUR ---
Nutrition follow-up: diet: Regular po intake 75% average x last 9 meals Wt: 155# Labs reviewed PO intake good at this time RDN following.
--- NOTE | 2019-06-30 12:55 | NUR ---
PATIENT SITTING UP EATING LUNCH. DENIES NEEDS. NO S/S OF DISTRESS. WILL CONTINUE TO MONITOR. ROSA MARIA
--- NOTE | 2019-06-30 14:12 | NUR ---
PATIENT UP AMBULATING WITH PHYSICAL THERAPY. NO S/S OF DISTRESS. DENIES NEEDS. WILL CONTINUE TO MONITOR. ROSA MARIA
--- NOTE | 2019-06-30 15:31 | NUR ---
CARE TEAM MEETING: PATIENT IS DOING VERY WELL IN THERAPY AND WILL DISCHARGE HOME IN AM WITH FAMILY AND HOME HEALTH. WILL CONTINUE TO FOLLOW WITH PATIENT.
[2019-06-30 19:46] VITALS: BP 163/76
--- NOTE | 2019-06-30 19:53 | NUR ---
AWAKE AND ALERT. RESTING IN BED WIHT RESPIRAITONS UNLABORED. NOTED NON-PRODUCTIVE COUGH. SOME PAIN IN NECK AND BACK WAS MEDICATED WITH SCHEDULED TYLENOL AT 1730 AND NOT DUE AGAIN UNTIL 2330. REPOSITIONED FOR COMFORT. NO ACUTE DISTRESS NOTED.
--- NOTE | 2019-07-01 01:40 | NUR ---
SLEEPING WITH NO DISTRESS NOTED.
--- NOTE | 2019-07-01 06:20 | NUR ---
UP TO SHOWER. TOLERATED WELL. BANDAGE REMOVED FROM PACEMAKER SITE AND INCISION IS HEALING.
--- NOTE | 2019-07-01 08:00 | NUR ---
PATIENT ALERT/ORIENT. CALL LIGHT WITHIN REACH. PLAN TO DISCHARGE TO HOME TODAY
[2019-07-01 08:18] VITALS: BP 139/76
--- NOTE | 2019-07-01 08:53 | RHP ---
PATIENT: ADRIEN BERGERON MEDICAL RECORD: [id number] ACCOUNT: [id number] LOCATION:[facility]1109 : [birth year] ADMISSION DATE: 06/25/19 REHABILITATION HISTORY AND PHYSICAL EXAMINATION POST ADMISSION PHYSICIAN EXAMINATION ADMITTING DIAGNOSIS: Symptomatic bradycardia. HISTORY OF PRESENT ILLNESS: The patient is an 78-year-old female patient who is admitted secondary to symptomatic bradycardia and syncope. She arrived to the ED on 06/23/2019 as a transfer from [facility]. She was not feeling well. She went to the store, she had been walking around for 7 minutes, felt funny. At that point, she was dizzy and lightheaded. She had a syncopal episode. Her heart rate was in the 30s to 40s. She was transported to an outside emergency room, she was somewhat hypotensive and bradycardic. She was then placed on dopamine and transferred to [place]. The patient had no history of coronary artery disease. No recent chest pain. She was admitted with possible sick sinus syndrome causing periodic bradycardia and syncopal episodes. Cardiology was evaluated. They proceeded with a permanent pacemaker placement because of the evidence of sinus arrest and sick sinus syndrome. On 06/24/2019, she had a permanent pacemaker placed per Dr. Rangel. Previously, she was living alone, was independent with ADLs and mobility. She is on home O2 for COPD. She has got a history of hypertension, COPD, hypoxic respiratory failure, tracheomalacia, chronic back pain. She is currently in a normal sinus rhythm. She states she is still weak and fatigued, has dyspnea on exertion and increased back pain, making ambulation more difficult. She lives alone and it was felt like she needed to be somewhat stronger before she was able to return home. COMORBIDITIES: Include symptomatic bradycardia, sick sinus syndrome, chronic hypoxic respiratory failure, tracheomalacia, COPD, dyspnea, lightheadedness, chronic back pain. PAST MEDICAL HISTORY: Significant for tracheomalacia. She has got history of chronic back pain. PAST SURGICAL HISTORY: Includes gallbladder surgery, back surgery and esophageal stretching. ALLERGIES: PENICILLIN AND CODEINE. CURRENT MEDICATIONS: Include Floranex daily, she is on Mucomyst daily, Protonix 40 mg daily, she is on Mucinex 600 mg b.i.d., melatonin 6 mg at bedtime, Patanol eyedrops, Omnicef 300 mg b.i.d., Atrovent 0.5 mg q.i.d., budesonide 0.5 mg b.i.d., acetaminophen 650 every 6 hours and MiraLax 17 grams in 8 ounces of water daily. HABITS: No alcohol or tobacco use. FAMILY HISTORY: Noncontributory. SOCIAL HISTORY: The patient hopes to return back home and get back to her prior level of functioning. REVIEW OF SYSTEMS: GENERAL: Does complain of some weakness and fatigue. HISTORY AND PHYSICAL [id number] ADRIEN BERGERON HEENT: She denies cold, cough, or congestion. CARDIOVASCULAR: Denies any chest pain. PHYSICAL EXAMINATION: VITAL SIGNS: Stable, afebrile. GENERAL: A well-developed elderly female, in no acute distress upon exam. HEENT: Normocephalic and atraumatic. Mucosa moist. NECK: Supple. No lymphadenopathy. LUNGS: Clear in upper simental. No wheezing, rhonchi or rales. HEART: Regular rate and rhythm. No murmurs, rubs or gallops. ABDOMEN: Soft, benign and nondistended. Positive bowel sounds times 4. EXTREMITIES: No clubbing, cyanosis or edema. NEUROLOGIC: She is mainly intact, although she does have some proximal muscle weakening. LABORATORY DATA: White count is 6000, H&H of 12 and 39, and platelet count was noted to be 181. Sodium 131, potassium 3.7, BUN and creatinine of 10 and 0.9, blood sugar is noted to be 115. ASSESSMENT: This is an 78-year-old female patient admitted to rehab with a working diagnosis of symptomatic bradycardia, now status post pacemaker placement. The patient has potential to make improvement. We instituted the following multidisciplinary therapies including, but not limited to physical, occupational, respiratory, speech, nutritional services, prosthetics and orthotics. Given her complex medical condition and risk for more complications, rehabilitation services cannot be provided at a low level of care such a correction facility. PLAN: 1. Admit to [facility] rehab for inpatient therapy to include the following disciplines: A. Physical therapy to improve gait, all transfer skills and bed mobility to a modified independent level. B. Occupational therapy to improve activities of daily living. C. Case management to assist with discharge planning and placement options. D. Nutrition to assist with nutritional needs. E. Rehabilitation nursing to assist in monitoring the patient's underlying medical conditions and to assist with any type of bowel or bladder management. 2. The patient's current medication and medical care will be continued. 3. The patient will be placed on standard fall precautions. 4. The patient's estimated length of stay is approximately 7-10 days. 5. We will discuss this patient during care team staff meeting this week. We will continue on home medications as appropriate. We will watch her pulse, hopefully get her back up and going and back home to [facility]. TRANSINT:[id number] Voice Confirmation ID: [id number] DOCUMENT ID: [id number] DAYA notes whether there has been none or any medical/functional change since admission: - No change since preadmission screen. DAYA attests patient continues to be appropriate for IRF: - Continues to be appropriate. HISTORY AND PHYSICAL [id number] ADRIEN BERGERON,JOCELIN CASTELAN MD at 0853 CC: [id number] DICTATION DATE: 06/26/19 1128 BUTTING SAW OPERATOR: 06/26/19 1231 ADM IN [place] [id number] [place] [address]
--- NOTE | 2019-07-01 09:00 | NUR ---
I have reviewed this patient and I concur with the Shift Assessment completed by the Licensed Practical Nurse today this shift.
--- NOTE | 2019-07-01 09:18 | NUR ---
PATIENT DISCHARING HOME TODAY WITH FAMILY. [facility] WILL PROVIDE THERAPY AT HOME. NO COMPARE DATA REVIEWED PATIENT FRIEND ADVISED PATIENT WHOM TO USE. NO NEW DME NEEDED AT THIS TIME. DR. MEDINA 07/08/19 @ 9:30, DR. FREEMAN/ELIS STOVALL 07/26/19 @ 10:20. [facility] FORM SIGNED, EXPLAINED, ONE GIVEN TO PATIENT AND ONE FILED IN CHART. DISCHARGE INSTRUCTIONS FAXED TO PCP, HOME HEALTH AND REVIEWED WITH PATIENT PER PRIMARY NURSE.
--- NOTE | 2019-07-01 10:10 | NUR ---
DISCHARGE ORDERS WRITTEN. DISCHARGE INSTRUCTIONS GONE OVER WITH PATIENT. DISCHARGE MEDICATIONS CALLED INTO [facility] IN [place]
--- NOTE | 2019-07-01 11:35 | NUR ---
PATIENT HELPED OUT TO CAR BY STAFF
== END 2019-07-01 12:16 | disposition home health service (06) | DRG 309 ==
LOC: D.REHAB 14:21
PROVIDERS: ADMIT Emergency Medicine; ATTEND Emergency Medicine
DX: I49.5 Sick sinus syndrome (principal); J96.11 Chronic respiratory failure with hypoxia; J44.9 Chronic obstructive pulmonary disease, unspecified; I10 Essential (primary) hypertension; J39.8 Other specified diseases of upper respiratory tract; Z99.81 Dependence on supplemental oxygen; Z95.0 Presence of cardiac pacemaker; G89.29 Other chronic pain; M54.9 Dorsalgia, unspecified

== ENCOUNTER 2019-11-08 13:30 | Emergency (ER) | payer MEDICARE, OTHER ==
[~2019-11-08] VITALS: Ht 152.4 cm; Wt 70.9 kg
[~2019-11-08 13:30] MED LIST changes: +MELATONIN 3 MG1 TAB PO; +TYLENOL ARTHRI650 MG PO
[2019-11-08 13:36] VITALS: Ht 152.4 cm; Wt 70.9 kg
[2019-11-08 14:45] LABS: BASOPHILS 0.3 % (0-2); HEMATOCRIT 36.2 % (36.0-48.0); HEMOGLOBIN 13.6 g/dL (12-16); IMMATURE GRANULOCYTES 0.5 % (0-5); LYMPHOCYTES 23.3 % (15-50); MCH 32.5 pg (26.0-34.0); MCHC 37.6 g/dL (31.0-37.0); MCV 86.4 fL (80.0-100.0); MEAN PLATELET VOLUME 11.2 fL (7.4-10.4); MONOCYTES 9.2 % (2-11); NEUTROPHILS 61.7 % (40-80); RBC 4.19 10x6/uL (4.00-5.40); WBC 6.2 10x3/uL (4.8-10.8)
[2019-11-08 14:47] LABS: PLATELET COUNT 141 10x3/uL (130-400)
[2019-11-08 14:52] LABS: APTT 26.7 SECONDS (22.8-39.4); INR 0.99 (0.85-1.17)
[2019-11-08 14:56] LABS: CALC OSMOLALITY 277 mosm/kg (275-300); CALCIUM 9.9 mg/dL (8.5-10.1); CARBON DIOXIDE 30.3 mmol/L (21.0-32.0); CHLORIDE - SERUM 100 mmol/L (98-107); CREATININE - SERUM 0.9 mg/dL (0.6-1.3); GLUCOSE 101 mg/dL (74-106); POTASSIUM - SERUM 3.1 mmol/L (3.5-5.1); SODIUM 140 mmol/L (136-145); UREA NITROGEN 9 mg/dL (7-18); eGFR NON AFRICAN AMERICAN 64 mL/min (90-120)
[2019-11-08 15:12] LABS: ALBUMIN 3.6 g/dL (3.4-5.0); ALKALINE PHOSPHATASE 86 U/L (30-120); ALT (SGPT) 18 U/L (10-68); BILIRUBIN - TOTAL 1.08 mg/dL (0.2-1.3); CKMB 0.5 U/L (0.0-3.6); CREATINE KINASE 59 UL (21-215); PRO BNP 103 pg/mL (0-450); PROTEIN - SERUM 8.1 g/dL (6.4-8.2)
[2019-11-08 15:22] LABS: TROPONIN-I < 0.017 ng/mL (0.000-0.060)
[2019-11-08 16:30] VITALS: BP 141/80
== END 2019-11-08 16:31 | disposition home or self-care (01) ==
LOC: D.ER 13:30
PROVIDERS: Family Medicine
DX: R06.00 Dyspnea, unspecified (principal); E87.6 Hypokalemia; R09.02 Hypoxemia; N18.9 Chronic kidney disease, unspecified; Z99.81 Dependence on supplemental oxygen

== ENCOUNTER → 2020-06-07 14:33 | Outpatient (CLI) | payer MEDICARE, OTHER ==
[~2020-06-07 14:33] MED LIST changes: +HYDROCODON-ACE1 EAC7 PO; +MUCINEX DM ER1 EAC1 PO; +SINGULAIR10 MG PO; +STERAPRED DS 1210 MG PO
== END | disposition home or self-care (01) ==
LOC: D.LAB 14:33
PROVIDERS: ATTEND Internal Medicine Pulmonary Disease
DX: J44.9 Chronic obstructive pulmonary disease, unspecified (principal)

== ENCOUNTER → 2020-06-12 12:55 | Outpatient (CLI) | payer MEDICARE, OTHER | END | disposition home or self-care (01) | LOC: D.RT 12:55 | PROVIDERS: ATTEND Internal Medicine Pulmonary Disease | DX: J44.9 Chronic obstructive pulmonary disease, unspecified (principal) ==